=== PATIENT | female | born 1935 | race Two or more races ===

== ENCOUNTER 2018-11-25 16:58 | Inpatient (IN) | payer MEDICARE, MEDICAID ==
[2018-11-25 17:31] LABS: % BASOPHILS 0.6 % (0.0-2.0); % EOSINOPHILS 11.6 % (0.0-5.0); % LYMPHOCYTES 14.4 % (20.0-50.0); % MONOCYTES 11.2 % (2.0-10.0); % NEUTROPHILS 62.2 % (40.0-80.0); EOSINOPHILE ABSOLUTE 0.9 Th/cmm (0.1-0.4); HEMATOCRIT 34.2 % (41.0-60); HEMOGLOBIN 11.1 gm/dL (12-16); LYMPHOCYTE ABSOLUTE 1.1 Th/cmm (1.5-3.0); MEAN CELL VOLUME 80.3 fl (81-100); MEAN CORPUSCULAR HEMOGLOBIN 26.1 pg (27.0-31.0); MEAN CORPUSCULAR HGB CONC 32.4 pg (28.0-36.0); MEAN PLATELET VOLUME 7.3 fl; MONOCYTE ABSOLUTE 0.9 Th/cmm (0.3-1.0); NEUTROPHILE ABSOLUTE 4.9 Th/cmm (1.8-8.0); PLATELET COUNT 326 Th/cmm (150-400); RED BLOOD COUNT 4.26 Mil/cmm (3.80-5.20); RED CELL DISTRIBUTION WIDTH 16.2 % (11.5-20.0); WHITE BLOOD COUNT 7.8 Th/cmm (4.8-10.8)
[2018-11-25 17:44] LABS: ALB/GLOB RATIO 1.8 (1.0-1.8); ALBUMIN 4.1 gm/dL (3.7-5.3); ALKALINE PHOSPHATASE 97 U/L (34-104); ANION GAP 11.4 (7.0-16.0); BILIRUBIN,TOTAL 0.2 mg/dL (0.3-1.0); BUN - UREA NITROGEN 19 mg/dL (7-25); CALCIUM SERUM 9.5 mg/dL (8.6-10.3); CARBON DIOXIDE 26.6 mEq/L (21.0-31.0); CHLORIDE 103 mEq/L (98-107); CREATININE - SERUM 0.9 mg/dL (0.6-1.2); GLUCOSE 98 mg/dL (70-105); MAGNESIUM 2.2 mg/dL (1.9-2.7); PHOSPHOROUS 3.2 mg/dL (2.5-5.0); SGOT 18 U/L (13-39); SGPT/ALT 20 U/L (7-52); SODIUM SERUM 137 mEq/L (136-145); TOTAL PROTEIN,SERUM 6.4 gm/dL (6.0-8.3)
[2018-11-25 17:49] LABS: URINE SOURCE CLEAN C
[2018-11-25 17:52] LABS: URINE BILIRUBIN NEGATIVE (NEGATIVE); URINE BLOOD SMALL (NEGATIVE); URINE GLUCOSE (UA) NEGATIVE (NEGATIVE); URINE KETONE NEGATIVE (NEGATIVE); URINE LEUKOCYTE ESTERASE MODERATE (NEGATIVE); URINE MICROSCOPIC INDICATED? YES; URINE NITRATE POSITIVE (NEGATIVE); URINE PROTEIN 30 mg/dL (NEGATIVE); URINE UROBILINOGEN 0.2 E.U./dL (0.2 - 1.0)
[2018-11-25 18:10] LABS: URINE CLARITY CLOUDY (CLEAR); URINE COLOR YELLOW
[2018-11-25 18:11] LABS: URINE RBC 0-2 /hpf (0-5)
[2018-11-25 18:12] LABS: URINE BACTERIA FEW /hpf (NONE SEEN); URINE EPITHELIAL CELLS FEW /lpf (FEW); URINE WBC 25-50 /hpf (0-5)
[2018-11-25 18:13] LABS: BENZODIAZEPINES QUAL URINE POSITIVE (NEGATIVE)
[2018-11-25 18:14] LABS: AMPHETAMINE URINE NEGATIVE (NEGATIVE); BARBITURATES URINE NEGATIVE (NEGATIVE); CANNABINOID THC NEGATIVE (NEGATIVE); COCAINE METABOLITE QUAL URINE NEGATIVE (NEGATIVE); METHADONE URINE NEGATIVE (NEGATIVE); METHAMPHETAMINES QUAL URINE NEGATIVE (NEGATIVE); OPIATES (MORPHINE) QUAL. URINE NEGATIVE (NEGATIVE); PHENCYCLIDINE (PCP) URINE NEGATIVE (NEGATIVE); TRICYCLICS (TCA) QUAL. URINE NEGATIVE (NEGATIVE)
[2018-11-25] MEDS ORDERED: Lactated Ringer 1,000 ML IV ONE (18:35)
--- NOTE | 2018-11-25 18:40 | ED Physician Chart ---
ED Chief Complaint/HPI - Patient Information Date Seen:: 11/25/18 Time Seen:: 17:01 Chief Complaint:: weakness History of Present Illness:: PATIENT PRESENTS TO THE ER WITH HX OF GENERALIZED WEAKNESS, DECREASED ADL'S AND FREQUENT FALLS; NO TRAUMA, Allergies:: Allergies Allergy/AdvReac Type Severity Reaction Status Date / Time No Known Allergies Allergy Verified 11/25/18 17:01 Vitals:: Vital Signs - 8 hr 11/25/18 17:01 Temp 97.1 F HR 60 RR 16 BP 121/66 O2 Sat % 96 Historian:: Medical Records Review:: Nurse's Note Reviewed, Transfer documents Reviewed ED Review of Systems - Review of Systems General/Constitutional: No fever, No chills, No weight loss, Weakness, No diaphoresis, No edema, No loss of appetite Skin: No skin lesions, No rash, No bruising Head: No headache, No light-headedness Eyes: No loss of vision, No pain, No diplopia ENT: No earache, No nasal drainage, No sore throat, No tinnitus Neck: No neck pain, No swelling, No thyromegaly, No stiffness, No mass noted Cardio Vascular: No chest pain, No palpitations, No PND, No orthopnea, No edema Pulmonary: No SOB, Cough, No sputum, No wheezing, Other (dry cough) GI: No nausea, No vomiting, No diarrhea, No pain, No melena, No hematochezia, No constipation, No hematemesis G/U: No dysuria, No frequency, No hematuria Musculoskeletal: No bone or joint pain, No back pain, No muscle pain Endocrine: No polyuria, No polydipsia Psychiatric: No prior psych history, No depression, No anxiety, No suicidal ideation Hematopoietic: No bruising, No lymphadenopathy Allergic/Immuno: No urticaria, No angioedema Neurological: No syncope, No focal symptoms, No weakness, No paresthesia, No headache, No seizure, No dizziness, No confusion, No vertigo ED Past Medical History - Past Medical History Obtainable: No Past Medical History: HTN, Asthma/COPD, CVA/TIA, PUD/GERD, Thyroid disorder, Other (R hemiparesis; visual impairment; AAA; vascular dementia) Psychiatricy History: Depression, Other (anxiety disorder) Family Medical History - Family Member Mother History Unknown: Yes ED Physical Exam - Physical Examination General/Constitutional: Awake, Well-developed, well-nourished, Alert, No distress, GCS 15, Non-toxic appearing, Ambulatory Head: Atraumatic Eyes: Lids, conjuctiva normal, PERRL, EOMI Skin: Nl inspection ENMT: External ears, nose nl Neck: Nontender, No nuchal rigidity, No stridor Respiratory: Nl effort/Exclusion, Clear to Auscultation, No Wheeze/Rhonchi/Rales Cardio Vascular: RRR, No murmur, gallop, rubs, NL S1 S2 GI: No tenderness/rebounding/guarding : No CVA tenderness Extremities: No tenderness or effusion, Full ROM, normal strength in all extremities, No edema, Normal digits & nails Neuro/Psych: Alert/oriented Misc: Normal back, No paraspinal tenderness ED Labs/Radiology/EKG Results - Lab Results Results: Laboratory Tests 11/25/18 11/25/18 11/25/18 17:22 17:22 17:47 WBC 7.8 RBC 4.26 Hgb 11.1 L Hct 34.2 L MCV 80.3 L MCH 26.1 L MCHC Differential 32.4 RDW 16.2 Plt Count 326 MPV 7.3 Neutrophils % 62.2 Lymphocytes % 14.4 L Monocytes % 11.2 H Eosinophils % 11.6 H Basophils % 0.6 Sodium 137 Potassium 4.0 Chloride 103 Carbon Dioxide 26.6 Anion Gap 11.4 BUN 19 Creatinine 0.9 Est GFR ( Amer) TNP Est GFR (Non-Af Amer) TNP BUN/Creatinine Ratio 21.1 Glucose 98 Calcium 9.5 Phosphorus 3.2 Magnesium 2.2 Total Bilirubin 0.2 L AST 18 ALT 20 Alkaline Phosphatase 97 Total Protein 6.4 Albumin 4.1 Globulin 2.3 Albumin/Globulin Ratio 1.8 Urine Source CLEAN C Urine Color YELLOW Urine Clarity CLOUDY H Urine pH 6.0 Ur Specific [place] >= 1.030 Urine Protein 30 H Urine Glucose (UA) NEGATIVE Urine Ketones NEGATIVE Urine Blood SMALL H Urine Nitrate POSITIVE H Urine Bilirubin NEGATIVE Urine Urobilinogen 0.2 Ur Leukocyte Esterase MODERATE H Urine RBC 0-2 Urine WBC 25-50 H Ur Epithelial Cells FEW Urine Bacteria FEW Urine Opiates Screen Urine Methadone Screen Ur Barbiturates Screen Ur Tricyclics Screen Ur Phencyclidine Scrn Amphetamines Screen U Methamphetamines Scrn U Benzodiazepines Scrn U Cocaine Metab Screen U Cannabinoids Screen 11/25/18 17:47 WBC RBC Hgb Hct MCV MCH MCHC Differential RDW Plt Count MPV Neutrophils % Lymphocytes % Monocytes % Eosinophils % Basophils % Sodium Potassium Chloride Carbon Dioxide Anion Gap BUN Creatinine Est GFR ( Amer) Est GFR (Non-Af Amer) BUN/Creatinine Ratio Glucose Calcium Phosphorus Magnesium Total Bilirubin AST ALT Alkaline Phosphatase Total Protein Albumin Globulin Albumin/Globulin Ratio Urine Source Urine Color Urine Clarity Urine pH Ur Specific [place] Urine Protein Urine Glucose (UA) Urine Ketones Urine Blood Urine Nitrate Urine Bilirubin Urine Urobilinogen Ur Leukocyte Esterase Urine RBC Urine WBC Ur Epithelial Cells Urine Bacteria Urine Opiates Screen NEGATIVE Urine Methadone Screen NEGATIVE Ur Barbiturates Screen NEGATIVE Ur Tricyclics Screen NEGATIVE Ur Phencyclidine Scrn NEGATIVE Amphetamines Screen NEGATIVE U Methamphetamines Scrn NEGATIVE U Benzodiazepines Scrn POSITIVE H U Cocaine Metab Screen NEGATIVE U Cannabinoids Screen NEGATIVE ED Assessment - Assessment General Assessment: phone call to Dr. Olmstead at 6:37 p.m. who is giving admit orders at this time. EKG baseline obtained to check QT interval. EKG from 18:53:05 p.m. reveals normal sinus rhythm with flipped t wave in III and V1. CXR: NAD. ED Septic Shock - . Is Septic Shock (SBP<90, OR Lactate>4 mmol\L) present?: No - <6hrs of presentation: Vital Signs: Vital Signs - 8 hr 11/25/18 17:01 Temp 97.1 F HR 60 RR 16 BP 121/66 O2 Sat % 96 ED Reassessment (Disposition) - Reassessment Reassessment Condition:: Unchanged - Diagnosis Diagnosis:: Weakness Urinary tract infection Dehydration Anemia Benzodiazepine usage
[2018-11-25] MEDS ORDERED: Levofloxacin 500mg/100mL 500 MG/100 ML BAG IV ONE (21:00)
[2018-11-25] MEDS: Sodium Chloride 0.45% 1,000 ML IV SCH (22:29)
[2018-11-26 04:48] LABS: % BASOPHILS 0.4 % (0.0-2.0); % EOSINOPHILS 10.4 % (0.0-5.0); % LYMPHOCYTES 13.2 % (20.0-50.0); % MONOCYTES 8.4 % (2.0-10.0); % NEUTROPHILS 67.6 % (40.0-80.0); EOSINOPHILE ABSOLUTE 0.7 Th/cmm (0.1-0.4); HEMATOCRIT 32.7 % (41.0-60); HEMOGLOBIN 10.4 gm/dL (12-16); LYMPHOCYTE ABSOLUTE 0.9 Th/cmm (1.5-3.0); MEAN CELL VOLUME 80.6 fl (81-100); MEAN CORPUSCULAR HEMOGLOBIN 25.6 pg (27.0-31.0); MEAN CORPUSCULAR HGB CONC 31.8 pg (28.0-36.0); MEAN PLATELET VOLUME 7.4 fl; MONOCYTE ABSOLUTE 0.6 Th/cmm (0.3-1.0); NEUTROPHILE ABSOLUTE 4.8 Th/cmm (1.8-8.0); PLATELET COUNT 315 Th/cmm (150-400); RED BLOOD COUNT 4.05 Mil/cmm (3.80-5.20)
[2018-11-26 05:46] LABS: ANION GAP 10.8 (7.0-16.0); BUN - UREA NITROGEN 14 mg/dL (7-25); CHLORIDE 104 mEq/L (98-107); CREATININE - SERUM 0.8 mg/dL (0.6-1.2); GLUCOSE 109 mg/dL (70-105); POTASSIUM SERUM 3.8 mEq/L (3.5-5.1); SODIUM SERUM 137 mEq/L (136-145)
[2018-11-26 05:47] VITALS: BP 134/54
[2018-11-26 05:47] LABS: CALCIUM SERUM 9.2 mg/dL (8.6-10.3)
[2018-11-26] MEDS ORDERED: Magnesium Hydroxide (MOM) 30 mL UDC PO PRN (09:15)
[2018-11-26] MEDS ORDERED: MINERAL OIL ENEMA 135 ML BOTTLE RC PRN (09:15)
[2018-11-26] MEDS ORDERED: Probiotic Screen MC PRN (09:17)
--- NOTE | 2018-11-26 09:22 | Diagnostic Imaging Report ---
Portable chest x-ray HISTORY: Cough The overall heart size is difficult to assess with portable technique in a poor inspiration, but appears to be somewhat enlarged. 8 mm calcified nodule noted in the right lower lobe consistent with old granulomatous disease. No acute focal pulmonary processes. IMPRESSION: 1. No acute focal pulmonary processes 2. Suggestion of cardiomegaly
--- NOTE | 2018-11-26 10:03 | History & Physical ---
ADMIT DATE: 11/26/2018 CHIEF COMPLAINT: Weakness. HISTORY OF PRESENT ILLNESS: This is an 83-year-old female who was admitted from the Emergency Room of [facility] secondary to weakness. From the Emergency Room, the patient did workup and found that the patient has ongoing urinary tract infection, hence the patient was admitted to Med/Surg unit. REVIEW OF SYSTEMS: GENERAL: This is an 83-year-old female. Denies fever. Positive weakness. HEENT: Denies headache. Denies dizziness. EYES: Denies eye pain. Denies blurring of vision. NECK: Denies neck pain. Denies nuchal rigidity. CHEST: Denies chest pain. Denies palpitation. PULMONARY: Denies shortness of breath. Positive coughing. GASTROINTESTINAL: Denies abdominal pain. Denies constipation. Denies diarrhea. MUSCULOSKELETAL: Denies joint pain. Denies muscle pain. SOCIAL HISTORY: The patient lives with family at home. Denies nicotine. Denies alcohol. Denies illicit drug use. PAST SURGICAL HISTORY: Unremarkable. FAMILY HISTORY: Unremarkable. PAST MEDICAL HISTORY: Includes asthma, hypertension, gout, arthritis, hyperlipidemia, coronary artery disease, iron-deficiency anemia, neuropathy, hypothyroidism. PSYCHIATRIC HISTORY: Includes depression, questionable dementia. PAST SURGICAL HISTORY: Unremarkable. PHYSICAL EXAMINATION: VITAL SIGNS: Temperature 96.8, heart rate of 86, blood pressure 132/60, respirations of 18, and 96% on room air. GENERAL: This is an 83-year-old female that appears as stated in no acute distress. HEENT: Head is atraumatic, normocephalic. Eyes: Bilateral conjunctivae are clear. Bilateral pupils are equally round and reactive. NECK: Supple. No JVD. CARDIOVASCULAR: S1 and S2, without murmur. PULMONARY: Clear to auscultation. GASTROINTESTINAL: Soft and nontender without guarding. Positive bowel sounds. MUSCULOSKELETAL: No clubbing. No cyanosis noted. ASSESSMENT: 1. Urinary tract infection. 2. Asthma. 3. Hypertension. 4. Gouty arthritis. 5. Coronary artery disease. 6. Hyperlipidemia. 7. Iron-deficiency anemia. 8. Gastroesophageal reflux disease. 9. Neuropathy. 10. Depression. PLAN: We will admit the patient to Med/Surg Unit. We will continue current antibiotics. We will wait for the urine culture. We will do medication reconciliation accordingly. Treatment plans were discussed with the patient's nurse. Treatment plans were discussed with Dr. Olmstead. JOB# [id number]
[2018-11-26] MEDS: Ferrous Sulfate 300 MG/5 ML UDC PO SCH ×3 (10:42→21:06)
[2018-11-26] MEDS: Levothyroxine 0.05 Mg Tab PO SCH (10:42)
[2018-11-26] MEDS: Albuterol/Ipratropium Neb 3 ML AERS HHN SCH ×2 (12:05→19:55)
[2018-11-26] MEDS: Guaifenesin DM 10 ML UDC PO PRN (17:34)
--- NOTE | 2018-11-26 19:01 | Consultation ---
Consult Note - Consult Note Service Date: 11/26/18 Referring Physician: Yong Olmstead Consult Note: PHYSICIAN Consultation Note: Date of Admission: 11/25/18 Purpose of Consultation: Chief Complaint: Patient DARREN DAWKINS was admitted to location Medical/Surgical Unit I with DEHYDRATION,UTI,WEAKNESS. History of Present Illness: 83 year old female with a past medical history of asthma, hypertension, gout, arthritis, hyperlipidemia, coronary artery disease, iron deficiency anemia, neuropathy, hypothyroidism brought to the ER for generalized weakness. On further evaluation, she was found to have UTI. Urine culture revealed 1-100, 000 gram-negative rods. ID consult was called for antibiotic management. Patient is poor historian. Unable to provide any meaningful history. Past Medical History: Asthma, hypertension, gout, arthritis, hyperlipidemia, coronary artery disease, iron deficiency anemia, neuropathy, hypothyroidism. Allergies Allergy/AdvReac Type Severity Reaction Status Date / Time No Known Allergies Allergy Verified 11/25/18 17:01 Vital Signs Temp 98.7 F 11/26/18 15:50 Pulse 66 11/26/18 17:26 Resp 18 11/26/18 15:50 BP 116/59 11/26/18 17:26 Pulse Ox 97 11/26/18 15:50 Intake & Output 11/26/18 11/26/18 11/27/18 06:59 18:59 06:59 Weight (lbs) 81.647 kg Other: # Voids 4 # Bowel Movements 0 Weight Source Bedscale Laboratory Results - last 24 hr 11/26/18 11/26/18 04:10 05:00 WBC 7.0 RBC 4.05 Hgb 10.4 L Hct 32.7 L MCV 80.6 L MCH 25.6 L MCHC Differential 31.8 RDW 16.0 Plt Count 315 MPV 7.4 Neutrophils % 67.6 Lymphocytes % 13.2 L Monocytes % 8.4 Eosinophils % 10.4 H Basophils % 0.4 Sodium 137 Potassium 3.8 Chloride 104 Carbon Dioxide 26.0 Anion Gap 10.8 BUN 14 Creatinine 0.8 Est GFR ( Amer) TNP Est GFR (Non-Af Amer) TNP BUN/Creatinine Ratio 17.5 Glucose 109 H Calcium 9.2 Home Medication Medication Instructions Recorded Type Acetaminophen [Tylenol] 650 mg PO Q4H PRN 11/25/18 History Albuterol/Ipratropium Neb [Duoneb 3 ml HHN Q6HR 11/25/18 History Neb] Allopurinol 200 mg PO DAILY 11/25/18 History Ascorbic Acid [Vitamin C] 500 mg PO TID 11/25/18 History Atorvastatin Calcium [Lipitor] 40 mg PO HS 11/25/18 History Clopidogrel [Plavix] 75 mg PO DAILY 11/25/18 History Cyanocobalamin [Vitamin B12] 1,000 mcg PO Q120H 11/25/18 History Docusate Sodium 100 mg PO BID 11/25/18 History Donepezil Hcl [Aricept] 10 mg PO HS 11/25/18 History Escitalopram Oxalate [Lexapro] 5 mg PO DAILY 11/25/18 History Famotidine 20 mg PO DAILY 11/25/18 History Ferrous Sulfate [Ferosul] 7.5 ml PO TID 11/25/18 History Fluticasone Propionate Nasal 2 spr NS DAILY 11/25/18 History [Flonase] Fluticasone/Vilanterol [Breo 1 pow IH DAILY 11/25/18 History Ellipta] Gabapentin 100 mg PO TID 11/25/18 History Guaifenesin/Dextromethorphan 1,185 ml PO Q6H PRN 11/25/18 History [Tussin Dm Cough Syrup] Ibuprofen 400 mg PO Q6H PRN 11/25/18 History Ibuprofen 600 mg PO Q12H 11/25/18 History Levothyroxine Sodium 50 mcg PO DAILY 11/25/18 History Magnesium Hydroxide [Milk of 30 ml PO DAILY PRN 11/25/18 History Magnesia] Melatonin 10 mg PO HS 11/25/18 History Metoprolol Tartrate 50 mg PO BID 11/25/18 History Mineral Oil Enema [Fleet Mineral 135 ml RC DAILY PRN 11/25/18 History Oil] Nitroglycerin 0.4 mg SL Q5MIN PRN 11/25/18 History amLODIPine Besylate [Norvasc] 5 mg PO DAILY 11/25/18 History Current Medications Generic Name Dose Route Start Last Admin Trade Name Freq PRN Reason Stop Dose Admin Acetaminophen 650 mg 11/26/18 09:15 Tylenol PO Q4H PRN MILD PAIN Albuterol/Ipratropium 3 ml 11/26/18 12:00 11/26/18 12:05 Duoneb Neb HHN 01/25/19 11:59 3 ml Q6HRT SONAM Administration Allopurinol 200 mg 11/26/18 09:30 11/26/18 10:42 Zyloprim PO 01/25/19 09:29 200 mg DAILY SONAM Administration Amlodipine Besylate 5 mg 11/26/18 09:30 11/26/18 10:43 Norvasc PO 01/25/19 09:29 5 mg DAILY SONAM Administration Ascorbic Acid 500 mg 11/26/18 09:30 11/26/18 15:17 Vitamin C PO 01/25/19 09:29 500 mg TID SONAM Administration Atorvastatin Calcium 40 mg 11/26/18 21:00 Lipitor PO 01/25/19 20:59 HS [facility] Budesonide 0.5 mg 11/26/18 12:00 Pulmicort [facility] 01/25/19 11:59 BIDRT [facility] Clopidogrel Bisulfate 75 mg 11/26/18 09:30 11/26/18 10:42 Plavix PO 01/25/19 09:29 75 mg DAILY [facility] Administration Cyanocobalamin 1,000 mcg 11/26/18 09:15 Vitamin B12 PO 01/25/19 09:14 Q120H [facility] Docusate Sodium 100 mg 11/26/18 09:30 11/26/18 17:27 Colace PO 01/25/19 09:29 100 mg BID [facility] Administration Donepezil HCl 10 mg 11/26/18 21:00 Aricept PO 01/25/19 20:59 HS [facility] Escitalopram Oxalate 5 mg 11/26/18 09:30 Lexapro PO 01/25/19 09:29 DAILY [facility] Protocol Famotidine 20 mg 11/26/18 09:30 11/26/18 10:43 Pepcid PO 01/25/19 09:29 20 mg DAILY [facility] Administration Ferrous Sulfate 300 mg 11/26/18 09:30 11/26/18 15:17 Iron PO 01/25/19 09:29 300 mg TID SONAM Administration Gabapentin 100 mg 11/26/18 09:30 11/26/18 15:17 Neurontin PO 01/25/19 09:29 100 mg TID [facility] Administration Guaifenesin/Dextromethorphan 10 ml 11/26/18 09:15 11/26/18 17:34 Robitussin Dm PO 01/25/19 09:14 10 ml Q6H PRN Administration Cough Sodium Chloride 1,000 mls @ 75 mls/hr 11/25/18 19:52 11/25/18 22:29 Nacl 0.45% IV 01/24/19 19:51 75 mls/hr .[id number] SONAM Administration Levofloxacin 250 mg in 50 mls @ 50 mls/hr 11/26/18 21:00 Levaquin Pb IV 01/25/19 20:59 HS SONAM Ibuprofen 400 mg 11/26/18 09:15 Motrin PO 01/25/19 09:14 Q6H PRN MOD/SEVERE PAIN Lactobacillus Rhamnosus 1 each 11/27/18 09:00 Culturelle 15b PO 01/26/19 08:59 DAILY SONAM Levothyroxine Sodium 0.05 mg 11/26/18 09:30 11/26/18 10:42 Synthroid PO 01/25/19 09:29 0.05 mg DAILY SONAM Administration Magnesium Hydroxide 30 ml 11/26/18 09:15 11/26/18 17:27 Milk Of Magnesia PO 01/25/19 09:14 30 ml DAILY PRN Administration IF DSS INEFFECTIVE Metoprolol Tartrate 50 mg 11/26/18 09:30 11/26/18 17:26 Lopressor PO 01/25/19 09:29 50 mg BID SONAM Administration Mineral Oil 135 ml 11/26/18 09:15 Fleet Mineral Oil RC 01/25/19 09:14 DAILY PRN IF DULCOLAX INEFFECTIVE Miscellaneous 1 ea 11/26/18 09:17 Probiotic Screen MC 01/25/19 09:16 PRN PRN PROTOCOL Nitroglycerin 0.4 mg 11/26/18 09:15 Nitrostat SL 01/25/19 09:14 Q5MIN PRN CHEST PAIN X3 Review of Systems: A 12 point ROS was reviewed with the pertinent positive and negatives noted in the HPI. Social History Lives at nursing facility. Smoking Status Former smoker Family Medical History Unknown. Physical Exam: General: Comfortable, not in acute distress. HEENT: Head: Normocephalic, atraumatic. Oral cavity: Moist, pink tongue. Eyes : PERRLA is present. Pupils PERRLA. No icterus. EOMI. Neck: Supple, no JVD, no use of accessory neck muscles. No thyromegaly. Cardio: S1 and S2 within normal limits, regular rhythm. There is no gallop, no gallops, no murmur. Respiratory: CTAP. Abdominal: Soft, nontender, nondistended, bowel sounds present Genital/Urinary: Deferred. Extremities: No cyanosis, no clubbing, no edema. Neurological: Alert, awake, Assessment: 1. UTI. 2. MEtabolic encephalopathy Plan: Continue levaquin. Depending on the culture and final antibiotic therapy. Thank you, Dr. Olmstead, for involving me in taking care of this patient. Signed, Kurt Pacheco M.D. [id number]
[2018-11-26] MEDS: Sodium Chloride 0.45% 1,000 ML IV SCH (19:43)
[2018-11-26] MEDS: Budesonide 0.5 Mg/2 mL Ud HHN SCH (19:55)
[2018-11-26] MEDS ORDERED: Non-Formulary Item 1 EA (Melatonin [Melatonin] 10 MG) PO SCH (21:00)
[2018-11-26] MEDS: Levofloxacin 250 mg/50 mL Premix Bag IV SCH (21:08)
[2018-11-27] MEDS: Guaifenesin DM 10 ML UDC PO PRN (00:02)
[2018-11-27] MEDS: Albuterol/Ipratropium Neb 3 ML AERS HHN SCH ×4 (00:25→19:28)
[2018-11-27 05:24] LABS: % BASOPHILS 0.5 % (0.0-2.0); % EOSINOPHILS 10.1 % (0.0-5.0); % LYMPHOCYTES 14.7 % (20.0-50.0); % NEUTROPHILS 64.7 % (40.0-80.0); EOSINOPHILE ABSOLUTE 0.7 Th/cmm (0.1-0.4); HEMATOCRIT 32.5 % (41.0-60); HEMOGLOBIN 10.6 gm/dL (12-16); LYMPHOCYTE ABSOLUTE 1.1 Th/cmm (1.5-3.0); MEAN CELL VOLUME 80.4 fl (81-100); MEAN CORPUSCULAR HEMOGLOBIN 26.3 pg (27.0-31.0); MEAN CORPUSCULAR HGB CONC 32.7 pg (28.0-36.0); MEAN PLATELET VOLUME 7.3 fl; MONOCYTE ABSOLUTE 0.7 Th/cmm (0.3-1.0); NEUTROPHILE ABSOLUTE 4.7 Th/cmm (1.8-8.0); PLATELET COUNT 312 Th/cmm (150-400); RED BLOOD COUNT 4.04 Mil/cmm (3.80-5.20); RED CELL DISTRIBUTION WIDTH 16.3 % (11.5-20.0); WHITE BLOOD COUNT 7.2 Th/cmm (4.8-10.8)
[2018-11-27 05:38] LABS: ALB/GLOB RATIO 1.7 (1.0-1.8); ALKALINE PHOSPHATASE 88 U/L (34-104); ANION GAP 10.4 (7.0-16.0); BILIRUBIN,TOTAL 0.2 mg/dL (0.3-1.0); BUN - UREA NITROGEN 8 mg/dL (7-25); CALCIUM SERUM 9.3 mg/dL (8.6-10.3); CARBON DIOXIDE 25.5 mEq/L (21.0-31.0); CHLORIDE 103 mEq/L (98-107); CREATININE - SERUM 0.9 mg/dL (0.6-1.2); GLUCOSE 114 mg/dL (70-105); POTASSIUM SERUM 3.9 mEq/L (3.5-5.1); SGOT 16 U/L (13-39); SGPT/ALT 17 U/L (7-52); SODIUM SERUM 135 mEq/L (136-145); TOTAL PROTEIN,SERUM 6.3 gm/dL (6.0-8.3)
[2018-11-27] MEDS: Budesonide 0.5 Mg/2 mL Ud HHN SCH ×2 (06:55→19:28)
[2018-11-27] MEDS: Ferrous Sulfate 300 MG/5 ML UDC PO SCH ×3 (08:32→20:29)
[2018-11-27] MEDS: Levothyroxine 0.05 Mg Tab PO SCH (08:32)
[2018-11-27] MEDS: Lactobacillus Rhamnosus GG 15 Billion CFU CAP.SPRINK PO SCH (08:33)
[2018-11-27] MEDS: Escitalopram Oxalate 5 mg Tab PO SCH (08:34)
--- NOTE | 2018-11-27 09:32 | Internal Medicine Prog Note ---
Internal Medicine Subjective - Subjective Patient seen and examined:: chart reviewed Patient is:: awake, talking, other (gen' weakness) Per staff patient has:: no adverse event Internal Medicine Objective - Results Result Diagrams: 11/27/18 05:10 11/27/18 05:10 Recent Labs: Laboratory Last Values WBC 7.2 Th/cmm (4.8-10.8) 11/27/18 05:10 RBC 4.04 Mil/cmm (3.80-5.20) 11/27/18 05:10 Hgb 10.6 gm/dL (12-16) L 11/27/18 05:10 Hct 32.5 % (41.0-60) L 11/27/18 05:10 MCV 80.4 fl (81-100) L 11/27/18 05:10 MCH 26.3 pg (27.0-31.0) L 11/27/18 05:10 MCHC Differential 32.7 pg (28.0-36.0) 11/27/18 05:10 RDW 16.3 % (11.5-20.0) 11/27/18 05:10 Plt Count 312 Th/cmm (150-400) 11/27/18 05:10 MPV 7.3 fl 11/27/18 05:10 Neutrophils % 64.7 % (40.0-80.0) 11/27/18 05:10 Lymphocytes % 14.7 % (20.0-50.0) L 11/27/18 05:10 Monocytes % 10.0 % (2.0-10.0) 11/27/18 05:10 Eosinophils % 10.1 % (0.0-5.0) H 11/27/18 05:10 Basophils % 0.5 % (0.0-2.0) 11/27/18 05:10 Sodium 135 mEq/L (136-145) L 11/27/18 05:10 Potassium 3.9 mEq/L (3.5-5.1) 11/27/18 05:10 Chloride 103 mEq/L (98-107) 11/27/18 05:10 Carbon Dioxide 25.5 mEq/L (21.0-31.0) 11/27/18 05:10 Anion Gap 10.4 (7.0-16.0) 11/27/18 05:10 BUN 8 mg/dL (7-25) 11/27/18 05:10 Creatinine 0.9 mg/dL (0.6-1.2) 11/27/18 05:10 Est GFR ( Amer) TNP 11/27/18 05:10 Est GFR (Non-Af Amer) TNP 11/27/18 05:10 BUN/Creatinine Ratio 8.9 11/27/18 05:10 Glucose 114 mg/dL (70-105) H 11/27/18 05:10 Calcium 9.3 mg/dL (8.6-10.3) 11/27/18 05:10 Phosphorus 3.2 mg/dL (2.5-5.0) 11/25/18 17:22 Magnesium 2.2 mg/dL (1.9-2.7) 11/25/18 17:22 Total Bilirubin 0.2 mg/dL (0.3-1.0) L 11/27/18 05:10 AST 16 U/L (13-39) 11/27/18 05:10 ALT 17 U/L (7-52) 11/27/18 05:10 Alkaline Phosphatase 88 U/L (34-104) 11/27/18 05:10 Total Protein 6.3 gm/dL (6.0-8.3) 11/27/18 05:10 Albumin 4.0 gm/dL (3.7-5.3) 11/27/18 05:10 Globulin 2.3 gm/dL 11/27/18 05:10 Albumin/Globulin Ratio 1.7 (1.0-1.8) 11/27/18 05:10 TSH 3.32 uIU/ml (0.34-5.60) 11/25/18 17:22 Urine Source CLEAN C 11/25/18 17:47 Urine Color YELLOW 11/25/18 17:47 Urine Clarity CLOUDY (CLEAR) H 11/25/18 17:47 Urine pH 6.0 (4.6 - 8.0) 11/25/18 17:47 Ur Specific [place] >= 1.030 (1.005-1.030) 11/25/18 17:47 Urine Protein 30 mg/dL (NEGATIVE) H 11/25/18 17:47 Urine Glucose (UA) NEGATIVE mg/dL (NEGATIVE) 11/25/18 17:47 Urine Ketones NEGATIVE mg/dL (NEGATIVE) 11/25/18 17:47 Urine Blood SMALL (NEGATIVE) H 11/25/18 17:47 Urine Nitrate POSITIVE (NEGATIVE) H 11/25/18 17:47 Urine Bilirubin NEGATIVE (NEGATIVE) 11/25/18 17:47 Urine Urobilinogen 0.2 E.U./dL (0.2 - 1.0) 11/25/18 17:47 Ur Leukocyte Esterase MODERATE (NEGATIVE) H 11/25/18 17:47 Urine RBC 0-2 /hpf (0-5) 11/25/18 17:47 Urine WBC 25-50 /hpf (0-5) H 11/25/18 17:47 Ur Epithelial Cells FEW /lpf (FEW) 11/25/18 17:47 Urine Bacteria FEW /hpf (NONE SEEN) 11/25/18 17:47 Stool Occult Blood NEGATIVE (NEGATIVE) 11/26/18 20:15 Urine Opiates Screen NEGATIVE (NEGATIVE) 11/25/18 17:47 Urine Methadone Screen NEGATIVE (NEGATIVE) 11/25/18 17:47 Ur Barbiturates Screen NEGATIVE (NEGATIVE) 11/25/18 17:47 Ur Tricyclics Screen NEGATIVE (NEGATIVE) 11/25/18 17:47 Ur Phencyclidine Scrn NEGATIVE (NEGATIVE) 11/25/18 17:47 Amphetamines Screen NEGATIVE (NEGATIVE) 11/25/18 17:47 U Methamphetamines Scrn NEGATIVE (NEGATIVE) 11/25/18 17:47 U Benzodiazepines Scrn POSITIVE (NEGATIVE) H 11/25/18 17:47 U Cocaine Metab Screen NEGATIVE (NEGATIVE) 11/25/18 17:47 U Cannabinoids Screen NEGATIVE (NEGATIVE) 11/25/18 17:47 - Physical Exam Vitals and I&O: Vital Signs Temp 98.2 F 11/27/18 08:13 Pulse 77 11/27/18 08:33 Resp 18 11/27/18 08:13 BP 134/49 11/27/18 08:33 Pulse Ox 98 11/27/18 08:13 Intake & Output 11/26/18 11/27/18 11/27/18 18:59 06:59 18:59 Intake Total 1000 1560 Balance 1000 1560 Weight (lbs) 81.647 kg Intake: Intake, IV Amount 1000 Sodium Chloride 0.45% 1, 1000 000 ml @ 75 mls/hr IV . [id number] [facility] Rx#:[id number] Oral 660 TPN/PPN 900 Other: # Voids 3 # Bowel Movements 0 Weight Source Bedscale Active Medications: Current Medications Acetaminophen (Tylenol) 650 mg PO Q4H PRN PRN Reason: MILD PAIN Albuterol/Ipratropium (Duoneb Neb) 3 ml HHN Q6HRT [facility] Stop: 01/25/19 11:59 Last Admin: 11/27/18 06:55 Dose: 3 ml Allopurinol (Zyloprim) 200 mg PO DAILY [facility] Stop: 01/25/19 09:29 Last Admin: 11/27/18 08:33 Dose: 200 mg Amlodipine Besylate (Norvasc) 5 mg PO DAILY [facility] Stop: 01/25/19 09:29 Last Admin: 11/27/18 08:33 Dose: 5 mg Ascorbic Acid (Vitamin C) 500 mg PO TID [facility] Stop: 01/25/19 09:29 Last Admin: 11/27/18 08:33 Dose: 500 mg Atorvastatin Calcium (Lipitor) 40 mg PO HS [facility] Stop: 01/25/19 20:59 Last Admin: 11/26/18 21:06 Dose: 40 mg Budesonide (Pulmicort) 0.5 mg HHN BIDRT [facility] Stop: 01/25/19 11:59 Last Admin: 11/27/18 06:55 Dose: 0.5 mg Clopidogrel Bisulfate (Plavix) 75 mg PO DAILY [facility] Stop: 01/25/19 09:29 Last Admin: 11/27/18 08:33 Dose: 75 mg Cyanocobalamin (Vitamin B12) 1,000 mcg PO Q120H [facility] Stop: 01/25/19 09:14 Docusate Sodium (Colace) 100 mg PO BID [facility] Stop: 01/25/19 09:29 Last Admin: 11/27/18 08:33 Dose: 100 mg Donepezil HCl (Aricept) 10 mg PO HS [facility] Stop: 01/25/19 20:59 Last Admin: 11/26/18 21:06 Dose: 10 mg Escitalopram Oxalate (Lexapro) 5 mg PO DAILY [facility]; Protocol Stop: 01/25/19 09:29 Last Admin: 11/27/18 08:34 Dose: 5 mg Famotidine (Pepcid) 20 mg PO DAILY [facility] Stop: 01/25/19 09:29 Last Admin: 11/27/18 08:33 Dose: 20 mg Ferrous Sulfate (Iron) 300 mg PO TID [facility] Stop: 01/25/19 09:29 Last Admin: 11/27/18 08:32 Dose: 300 mg Gabapentin (Neurontin) 100 mg PO TID [facility] Stop: 01/25/19 09:29 Last Admin: 11/27/18 08:32 Dose: 100 mg Guaifenesin/Dextromethorphan (Robitussin Dm) 10 ml PO Q6H PRN PRN Reason: Cough Stop: 01/25/19 09:14 Last Admin: 11/27/18 00:02 Dose: 10 ml Sodium Chloride (Nacl 0.45%) 1,000 mls @ 75 mls/hr IV .[id number] [facility] Stop: 01/24/19 19:51 Last Admin: 11/26/18 19:43 Dose: 75 mls/hr Levofloxacin (Levaquin Pb) 250 mg in 50 mls @ 50 mls/hr IV HS [facility] Stop: 01/25/19 20:59 Last Admin: 11/26/18 21:08 Dose: 50 mls/hr Ibuprofen (Motrin) 400 mg PO Q6H PRN PRN Reason: MOD/SEVERE PAIN Stop: 01/25/19 09:14 Lactobacillus Rhamnosus (Culturelle 15b) 1 each PO DAILY [facility] Stop: 01/26/19 08:59 Last Admin: 11/27/18 08:33 Dose: 1 each Levothyroxine Sodium (Synthroid) 0.05 mg PO DAILY [facility] Stop: 01/25/19 09:29 Last Admin: 11/27/18 08:32 Dose: 0.05 mg Lorazepam (Ativan) 1 mg IVP Q6H PRN; Protocol PRN Reason: Agitation Stop: 01/25/19 20:02 Magnesium Hydroxide (Milk Of Magnesia) 30 ml PO DAILY PRN PRN Reason: IF DSS INEFFECTIVE Stop: 01/25/19 09:14 Last Admin: 11/26/18 17:27 Dose: 30 ml Metoprolol Tartrate (Lopressor) 50 mg PO BID [facility] Stop: 01/25/19 09:29 Last Admin: 11/27/18 08:33 Dose: 50 mg Mineral Oil (Fleet Mineral Oil) 135 ml RC DAILY PRN PRN Reason: IF DULCOLAX INEFFECTIVE Stop: 01/25/19 09:14 Miscellaneous (Probiotic Screen) 1 ea MC PRN PRN PRN Reason: PROTOCOL Stop: 01/25/19 09:16 Mupirocin (Bactroban Oint) 1 appl NS BID [facility] Stop: 12/01/18 17:01 Last Admin: 11/27/18 08:32 Dose: 1 appl Nitroglycerin (Nitrostat) 0.4 mg SL Q5MIN PRN PRN Reason: CHEST PAIN X3 Stop: 01/25/19 09:14 General: weak, alert Neck: Supple Lungs: CTAB Cardiovascular: RRR, Normal S1, Normal S2 Abdomen: soft, non-tender Extremities: clear Neurological: no change Internal Medicine Assmt/Plan - Assessment Assessment: uti weakness generalized h/o htn gouty arthritis cad hyperlipidemia anemia gerd neuropathy depression - Plan Plan: antibiotics monitor vitals deit labs urine cultures Nutritional Asmnt/Malnutr-PDOC - Dietary Evaluation Malnutrition Findings (Please click <Entered> for more info): Nutritional Asmnt/Malnutrition Start: 11/26/18 12: 46 Text: Status: Active Freq: Protocol: Document 11/26/18 12:54 RHAQUE (Rec: 11/26/18 13:01 RHAQOMAR [email or web address]) Nutritional Asmnt/Malnutrition Patient General Information Nutritional Screening High Risk Diagnosis Dehydration, UTI, Weakness Pertinent Medical Hx/Surgical Hx Asthma, HTN, Gout, Arthritis, MDD, Hyperlipidemia, CAD, iron def anemia, Neuropathy, Hypothyroidism Subjective Information Pt was fast asleep with lunch in front of her during visit. Spoke to TEJAL Mock, she claimed that Pt is mostly span speaking, but has been eating some of her meals. No record of B.M as yet, but has only been here for ~1 day. TEJAL Mock later informed me that the Pt has no teeth, so her diet may need to be changed after possible Swallow eval. Supplementation with Ensure TID was recommended. Current Diet Order/ Nutrition Support [facility] Soft texture w Regular Liquid Consistency Patient / S.O Can't verbalize diet edu Pertinent Medications Allopurinol, Vit C, Plavix, Colace, Pepcid, Iron, Gabapentin, Synthroid Pertinent Labs Gluc 109 H Nutritional Hx/Data Height 1.6 m Height (Calculated Centimeters) 160.0 Current Weight (lbs) 81.647 kg Weight (Calculated Kilograms) 81.6 Weight (Calculated Grams) 41371.6 [place] Body Weight 115 % [place] Body Weight 139 Body Mass Index (BMI) 31.8 Weight Status Overweight GI Symptoms GI Symptoms None Last BM No record Difficult in: None Food Allergies No Cultural/Ethnic/Religion Belief None noted. Skin Integrity/Comment: Felipe score 16 Current %PO Negligible < 25% Estimated Nutritional Goals BEE in Kcals: Adj wt of IBW Calories/Kcals/Kg 25-30 Kcals Calculated 6912-6034 Protein: Adj wt of IBW Protein g/k.8-1 Protein Calculated 48-60 Fluid: ml 9155-6967 Nutritional Problem 1. Problem Problem Inadequate oral food intake d/ t Etiology incorrect diet order aeb Signs/Symptoms: negligible PO intake Malnutrition Alert Is there a minimum of two criteria No selected? Query Text:Check all the applicable criteria. A minimum of two criteria are recommended for diagnosis of either severe or non-severe malnutrition. Malnutrition Related to Morbid Obesity Malnutrition related to morbid obesity No Intervention/Recommendation Recommendations by RD Protein supplementation Add supplement feedings Comments Change diet to softer consistency to account for lack of dentition. Add supplemental feedings with Ensure TID to facilitate PO intake. Expected Outcomes/Goals Expected Outcomes/Goals Maintain 100% PO intake Labs return WNL Monitor for constipation, no record of B.M.s since admission F/U in 3-5 days as
[2018-11-27] MEDS: Sodium Chloride 0.45% 1,000 ML IV SCH (14:52)
[2018-11-27] MEDS: Levofloxacin 250 mg/50 mL Premix Bag IV SCH (20:29)
[2018-11-28] MEDS: Albuterol/Ipratropium Neb 3 ML AERS HHN SCH ×4 (01:18→19:05)
[2018-11-28] MEDS: Sodium Chloride 0.45% 1,000 ML IV SCH (06:01)
[2018-11-28 06:31] LABS: % BASOPHILS 0.1 % (0.0-2.0); % LYMPHOCYTES 11.4 % (20.0-50.0); % MONOCYTES 10.1 % (2.0-10.0); % NEUTROPHILS 65.4 % (40.0-80.0); EOSINOPHILE ABSOLUTE 1.1 Th/cmm (0.1-0.4); HEMATOCRIT 34.3 % (41.0-60); HEMOGLOBIN 11.1 gm/dL (12-16); MEAN CELL VOLUME 80.4 fl (81-100); MEAN CORPUSCULAR HGB CONC 32.4 pg (28.0-36.0); MEAN PLATELET VOLUME 7.5 fl; MONOCYTE ABSOLUTE 0.9 Th/cmm (0.3-1.0); NEUTROPHILE ABSOLUTE 5.7 Th/cmm (1.8-8.0); PLATELET COUNT 298 Th/cmm (150-400); RED BLOOD COUNT 4.27 Mil/cmm (3.80-5.20); RED CELL DISTRIBUTION WIDTH 16.3 % (11.5-20.0); WHITE BLOOD COUNT 8.7 Th/cmm (4.8-10.8)
[2018-11-28 06:44] LABS: ALB/GLOB RATIO 1.5 (1.0-1.8); ALBUMIN 3.7 gm/dL (3.7-5.3); ALKALINE PHOSPHATASE 87 U/L (34-104); ANION GAP 11.4 (7.0-16.0); BILIRUBIN,TOTAL 0.2 mg/dL (0.3-1.0); BUN - UREA NITROGEN 10 mg/dL (7-25); CALCIUM SERUM 9.3 mg/dL (8.6-10.3); CARBON DIOXIDE 26.6 mEq/L (21.0-31.0); CHLORIDE 103 mEq/L (98-107); CREATININE - SERUM 0.9 mg/dL (0.6-1.2); GLUCOSE 121 mg/dL (70-105); SGOT 16 U/L (13-39); SGPT/ALT 16 U/L (7-52); SODIUM SERUM 137 mEq/L (136-145); TOTAL PROTEIN,SERUM 6.2 gm/dL (6.0-8.3)
[2018-11-28] MEDS: Budesonide 0.5 Mg/2 mL Ud HHN SCH ×2 (06:44→19:05)
[2018-11-28] MEDS ORDERED: Betamethasone/Clotrimazole Cream 15 gm Tube TP SCH (09:00)
[2018-11-28] MEDS: Ferrous Sulfate 300 MG/5 ML UDC PO SCH ×2 (09:28→17:34)
[2018-11-28] MEDS: Levothyroxine 0.05 Mg Tab PO SCH (09:28)
[2018-11-28] MEDS: Escitalopram Oxalate 5 mg Tab PO SCH (09:28)
[2018-11-28] MEDS: Lactobacillus Rhamnosus GG 15 Billion CFU CAP.SPRINK PO SCH (09:30)
--- NOTE | 2018-11-28 10:47 | Internal Medicine Prog Note ---
Internal Medicine Subjective - Subjective Service Date: 11/28/18 Patient seen and examined:: chart reviewed Patient is:: awake, verbal, talking, other (general weakness) Patient Complaints of:: other (neuropathy) Per staff patient has:: no adverse event, no episodes of fall (uti) Internal Medicine Objective - Results Result Diagrams: 11/28/18 05:45 11/28/18 05:45 Recent Labs: Laboratory Last Values WBC 8.7 Th/cmm (4.8-10.8) 11/28/18 05:45 RBC 4.27 Mil/cmm (3.80-5.20) 11/28/18 05:45 Hgb 11.1 gm/dL (12-16) L 11/28/18 05:45 Hct 34.3 % (41.0-60) L 11/28/18 05:45 MCV 80.4 fl (81-100) L 11/28/18 05:45 MCH 26.0 pg (27.0-31.0) L 11/28/18 05:45 MCHC Differential 32.4 pg (28.0-36.0) 11/28/18 05:45 RDW 16.3 % (11.5-20.0) 11/28/18 05:45 Plt Count 298 Th/cmm (150-400) 11/28/18 05:45 MPV 7.5 fl 11/28/18 05:45 Neutrophils % 65.4 % (40.0-80.0) 11/28/18 05:45 Lymphocytes % 11.4 % (20.0-50.0) L 11/28/18 05:45 Monocytes % 10.1 % (2.0-10.0) H 11/28/18 05:45 Eosinophils % 13.0 % (0.0-5.0) H 11/28/18 05:45 Basophils % 0.1 % (0.0-2.0) 11/28/18 05:45 Sodium 137 mEq/L (136-145) 11/28/18 05:45 Potassium 4.0 mEq/L (3.5-5.1) 11/28/18 05:45 Chloride 103 mEq/L (98-107) 11/28/18 05:45 Carbon Dioxide 26.6 mEq/L (21.0-31.0) 11/28/18 05:45 Anion Gap 11.4 (7.0-16.0) 11/28/18 05:45 BUN 10 mg/dL (7-25) 11/28/18 05:45 Creatinine 0.9 mg/dL (0.6-1.2) 11/28/18 05:45 Est GFR ( Amer) TNP 11/28/18 05:45 Est GFR (Non-Af Amer) TNP 11/28/18 05:45 BUN/Creatinine Ratio 11.1 11/28/18 05:45 Glucose 121 mg/dL (70-105) H 11/28/18 05:45 Calcium 9.3 mg/dL (8.6-10.3) 11/28/18 05:45 Phosphorus 3.2 mg/dL (2.5-5.0) 11/25/18 17:22 Magnesium 2.2 mg/dL (1.9-2.7) 11/25/18 17:22 Total Bilirubin 0.2 mg/dL (0.3-1.0) L 11/28/18 05:45 AST 16 U/L (13-39) 11/28/18 05:45 ALT 16 U/L (7-52) 11/28/18 05:45 Alkaline Phosphatase 87 U/L (34-104) 11/28/18 05:45 Total Protein 6.2 gm/dL (6.0-8.3) 11/28/18 05:45 Albumin 3.7 gm/dL (3.7-5.3) 11/28/18 05:45 Globulin 2.5 gm/dL 11/28/18 05:45 Albumin/Globulin Ratio 1.5 (1.0-1.8) 11/28/18 05:45 TSH 3.32 uIU/ml (0.34-5.60) 11/25/18 17:22 Urine Source CLEAN C 11/25/18 17:47 Urine Color YELLOW 11/25/18 17:47 Urine Clarity CLOUDY (CLEAR) H 11/25/18 17:47 Urine pH 6.0 (4.6 - 8.0) 11/25/18 17:47 Ur Specific [place] >= 1.030 (1.005-1.030) 11/25/18 17:47 Urine Protein 30 mg/dL (NEGATIVE) H 11/25/18 17:47 Urine Glucose (UA) NEGATIVE mg/dL (NEGATIVE) 11/25/18 17:47 Urine Ketones NEGATIVE mg/dL (NEGATIVE) 11/25/18 17:47 Urine Blood SMALL (NEGATIVE) H 11/25/18 17:47 Urine Nitrate POSITIVE (NEGATIVE) H 11/25/18 17:47 Urine Bilirubin NEGATIVE (NEGATIVE) 11/25/18 17:47 Urine Urobilinogen 0.2 E.U./dL (0.2 - 1.0) 11/25/18 17:47 Ur Leukocyte Esterase MODERATE (NEGATIVE) H 11/25/18 17:47 Urine RBC 0-2 /hpf (0-5) 11/25/18 17:47 Urine WBC 25-50 /hpf (0-5) H 11/25/18 17:47 Ur Epithelial Cells FEW /lpf (FEW) 11/25/18 17:47 Urine Bacteria FEW /hpf (NONE SEEN) 11/25/18 17:47 Stool Occult Blood NEGATIVE (NEGATIVE) 11/27/18 12:17 Urine Opiates Screen NEGATIVE (NEGATIVE) 11/25/18 17:47 Urine Methadone Screen NEGATIVE (NEGATIVE) 11/25/18 17:47 Ur Barbiturates Screen NEGATIVE (NEGATIVE) 11/25/18 17:47 Ur Tricyclics Screen NEGATIVE (NEGATIVE) 11/25/18 17:47 Ur Phencyclidine Scrn NEGATIVE (NEGATIVE) 11/25/18 17:47 Amphetamines Screen NEGATIVE (NEGATIVE) 11/25/18 17:47 U Methamphetamines Scrn NEGATIVE (NEGATIVE) 11/25/18 17:47 U Benzodiazepines Scrn POSITIVE (NEGATIVE) H 11/25/18 17:47 U Cocaine Metab Screen NEGATIVE (NEGATIVE) 11/25/18 17:47 U Cannabinoids Screen NEGATIVE (NEGATIVE) 11/25/18 17:47 - Physical Exam Vitals and I&O: Vital Signs Temp 97.2 F 11/28/18 04:00 Pulse 86 11/28/18 09:30 Resp 18 11/28/18 07:00 BP 134/64 11/28/18 09:30 Pulse Ox 99 11/28/18 07:00 Intake & Output 11/27/18 11/28/18 11/28/18 18:59 06:59 18:59 Intake Total 1000 1050 Balance 1000 1050 Intake: Intake, IV Amount 1000 1050 Levofloxacin 250mg/50mL 50 250 mg In 50 ml @ 50 mls/ hr IV HS [facility] Rx#: [id number] Sodium Chloride 0.45% 1, 1000 1000 000 ml @ 75 mls/hr IV . [id number] [facility] Rx#:[id number] Other: Stool Characteristics Black Active Medications: Current Medications Acetaminophen (Tylenol) 650 mg PO Q4H PRN PRN Reason: MILD PAIN Albuterol/Ipratropium (Duoneb Neb) 3 ml HHN Q6HRT [facility] Stop: 01/25/19 11:59 Last Admin: 11/28/18 06:44 Dose: 3 ml Allopurinol (Zyloprim) 200 mg PO DAILY [facility] Stop: 01/25/19 09:29 Last Admin: 11/28/18 09:29 Dose: 200 mg Amlodipine Besylate (Norvasc) 5 mg PO DAILY [facility] Stop: 01/25/19 09:29 Last Admin: 11/28/18 09:30 Dose: 5 mg Ascorbic Acid (Vitamin C) 500 mg PO TID [facility] Stop: 01/25/19 09:29 Last Admin: 11/28/18 09:29 Dose: 500 mg Atorvastatin Calcium (Lipitor) 40 mg PO HS [facility] Stop: 01/25/19 20:59 Last Admin: 11/27/18 20:29 Dose: 40 mg Betamethasone/Clotrimazole (Lotrisone Cream) 1 appl TP BID [facility] Stop: 01/27/19 08:59 Last Admin: 11/28/18 09:28 Dose: 1 appl Budesonide (Pulmicort) 0.5 mg HHN BIDRT [facility] Stop: 01/25/19 11:59 Last Admin: 11/28/18 06:44 Dose: 0.5 mg Clopidogrel Bisulfate (Plavix) 75 mg PO DAILY [facility] Stop: 01/25/19 09:29 Last Admin: 11/28/18 09:29 Dose: 75 mg Cyanocobalamin (Vitamin B12) 1,000 mcg PO Q120H [facility] Stop: 01/25/19 09:14 Diphenhydramine HCl (Benadryl) 25 mg PO TID PRN PRN Reason: Itching Stop: 01/26/19 22:01 Last Admin: 11/27/18 22:18 Dose: 25 mg Docusate Sodium (Colace) 100 mg PO BID [facility] Stop: 01/25/19 09:29 Last Admin: 11/28/18 09:29 Dose: 100 mg Donepezil HCl (Aricept) 10 mg PO HS [facility] Stop: 01/25/19 20:59 Last Admin: 11/27/18 20:29 Dose: 10 mg Escitalopram Oxalate (Lexapro) 5 mg PO DAILY [facility]; Protocol Stop: 01/25/19 09:29 Last Admin: 11/28/18 09:28 Dose: 5 mg Famotidine (Pepcid) 20 mg PO DAILY [facility] Stop: 01/25/19 09:29 Last Admin: 11/28/18 09:29 Dose: 20 mg Ferrous Sulfate (Iron) 300 mg PO TID [facility] Stop: 01/25/19 09:29 Last Admin: 11/28/18 09:28 Dose: 300 mg Gabapentin (Neurontin) 100 mg PO TID [facility] Stop: 01/25/19 09:29 Last Admin: 11/28/18 09:29 Dose: 100 mg Guaifenesin/Dextromethorphan (Robitussin Dm) 10 ml PO Q6H PRN PRN Reason: Cough Stop: 01/25/19 09:14 Last Admin: 11/27/18 00:02 Dose: 10 ml Sodium Chloride (Nacl 0.45%) 1,000 mls @ 75 mls/hr IV .[id number] [facility] Stop: 01/24/19 19:51 Last Admin: 11/28/18 06:01 Dose: 75 mls/hr Levofloxacin (Levaquin Pb) 250 mg in 50 mls @ 50 mls/hr IV HS [facility] Stop: 01/25/19 20:59 Last Infusion: 11/27/18 21:29 Dose: Infused Ibuprofen (Motrin) 400 mg PO Q6H PRN PRN Reason: MOD/SEVERE PAIN Stop: 01/25/19 09:14 Lactobacillus Rhamnosus (Culturelle 15b) 1 each PO DAILY [facility] Stop: 01/26/19 08:59 Last Admin: 11/28/18 09:30 Dose: 1 each Levothyroxine Sodium (Synthroid) 0.05 mg PO DAILY [facility] Stop: 01/25/19 09:29 Last Admin: 11/28/18 09:28 Dose: 0.05 mg Lorazepam (Ativan) 1 mg IVP Q6H PRN; Protocol PRN Reason: Agitation Stop: 01/25/19 20:02 Last Admin: 11/27/18 12:08 Dose: 1 mg Magnesium Hydroxide (Milk Of Magnesia) 30 ml PO DAILY PRN PRN Reason: IF DSS INEFFECTIVE Stop: 01/25/19 09:14 Last Admin: 11/26/18 17:27 Dose: 30 ml Metoprolol Tartrate (Lopressor) 50 mg PO BID [facility] Stop: 01/25/19 09:29 Last Admin: 11/28/18 09:29 Dose: 50 mg Mineral Oil (Fleet Mineral Oil) 135 ml RC DAILY PRN PRN Reason: IF DULCOLAX INEFFECTIVE Stop: 01/25/19 09:14 Miscellaneous (Probiotic Screen) 1 ea MC PRN PRN PRN Reason: PROTOCOL Stop: 01/25/19 09:16 Mupirocin (Bactroban Oint) 1 appl NS BID [facility] Stop: 12/01/18 17:01 Last Admin: 11/28/18 09:28 Dose: 1 appl Nitroglycerin (Nitrostat) 0.4 mg SL Q5MIN PRN PRN Reason: CHEST PAIN X3 Stop: 01/25/19 09:14 General: weak, alert HEENT: PERRLA, throat clear Neck: Supple Lungs: CTAB Cardiovascular: RRR, Normal S1, Normal S2 Abdomen: soft, non-tender Extremities: pain (neuropathy) Neurological: no change Internal Medicine Assmt/Plan - Assessment Assessment: uti weakness generalized h/o htn gout arthritis cad MDD hyperlipidemia anemia-iron deficiency gerd hypothyroidism neuropathy depression - Plan Plan: antibiotics monitor vitals, labs urine cultures diet cpm Nutritional Asmnt/Malnutr-PDOC - Dietary Evaluation Malnutrition Findings (Please click <Entered> for more info): Nutritional Asmnt/Malnutrition Start: 11/26/18 12: 46 Text: Status: Active Freq: Protocol: Document 11/26/18 12:54 RHAQUE (Rec: 11/26/18 13:01 RHAQOMAR [email or web address]) Nutritional Asmnt/Malnutrition Patient General Information Nutritional Screening High Risk Diagnosis Dehydration, UTI, Weakness Pertinent Medical Hx/Surgical Hx Asthma, HTN, Gout, Arthritis, MDD, Hyperlipidemia, CAD, iron def anemia, Neuropathy, Hypothyroidism Subjective Information Pt was fast asleep with lunch in front of her during visit. Spoke to TEJAL Mock, she claimed that Pt is mostly span speaking, but has been eating some of her meals. No record of B.M as yet, but has only been here for ~1 day. TEJAL Mock later informed me that the Pt has no teeth, so her diet may need to be changed after possible Swallow eval. Supplementation with Ensure TID was recommended. Current Diet Order/ Nutrition Support [facility] Soft texture w Regular Liquid Consistency Patient / S.O Can't verbalize diet edu Pertinent Medications Allopurinol, Vit C, Plavix, Colace, Pepcid, Iron, Gabapentin, Synthroid Pertinent Labs Gluc 109 H Nutritional Hx/Data Height 1.6 m Height (Calculated Centimeters) 160.0 Current Weight (lbs) 81.647 kg Weight (Calculated Kilograms) 81.6 Weight (Calculated Grams) 07225.6 [place] Body Weight 115 % [place] Body Weight 139 Body Mass Index (BMI) 31.8 Weight Status Overweight GI Symptoms GI Symptoms None Last BM No record Difficult in: None Food Allergies No Cultural/Ethnic/Sikh Belief None noted. Skin Integrity/Comment: Felipe score 16 Current %PO Negligible < 25% Estimated Nutritional Goals BEE in Kcals: Adj wt of IBW Calories/Kcals/Kg 25-30 Kcals Calculated 8236-8967 Protein: Adj wt of IBW Protein g/k.8-1 Protein Calculated 48-60 Fluid: ml 6770-0253 Nutritional Problem 1. Problem Problem Inadequate oral food intake d/ t Etiology incorrect diet order aeb Signs/Symptoms: negligible PO intake Malnutrition Alert Is there a minimum of two criteria No selected? Query Text:Check all the applicable criteria. A minimum of two criteria are recommended for diagnosis of either severe or non-severe malnutrition. Malnutrition Related to Morbid Obesity Malnutrition related to morbid obesity No Intervention/Recommendation Recommendations by RD Protein supplementation Add supplement feedings Comments Change diet to softer consistency to account for lack of dentition. Add supplemental feedings with Ensure TID to facilitate PO intake. Expected Outcomes/Goals Expected Outcomes/Goals Maintain 100% PO intake Labs return WNL Monitor for constipation, no record of B.M.s since admission F/U in 3-5 days as
--- NOTE | 2018-11-28 14:47 | Infectious Disease Prog Note ---
Infectious Disease Subjective - Review of Systems Service Date: 11/28/18 Subjective: No fever. Infectious Disease Objective - Results Result Diagrams: 11/28/18 05:45 11/28/18 05:45 Recent Labs: Laboratory Last Values WBC 8.7 Th/cmm (4.8-10.8) 11/28/18 05:45 RBC 4.27 Mil/cmm (3.80-5.20) 11/28/18 05:45 Hgb 11.1 gm/dL (12-16) L 11/28/18 05:45 Hct 34.3 % (41.0-60) L 11/28/18 05:45 MCV 80.4 fl (81-100) L 11/28/18 05:45 MCH 26.0 pg (27.0-31.0) L 11/28/18 05:45 MCHC Differential 32.4 pg (28.0-36.0) 11/28/18 05:45 RDW 16.3 % (11.5-20.0) 11/28/18 05:45 Plt Count 298 Th/cmm (150-400) 11/28/18 05:45 MPV 7.5 fl 11/28/18 05:45 Neutrophils % 65.4 % (40.0-80.0) 11/28/18 05:45 Lymphocytes % 11.4 % (20.0-50.0) L 11/28/18 05:45 Monocytes % 10.1 % (2.0-10.0) H 11/28/18 05:45 Eosinophils % 13.0 % (0.0-5.0) H 11/28/18 05:45 Basophils % 0.1 % (0.0-2.0) 11/28/18 05:45 Sodium 137 mEq/L (136-145) 11/28/18 05:45 Potassium 4.0 mEq/L (3.5-5.1) 11/28/18 05:45 Chloride 103 mEq/L (98-107) 11/28/18 05:45 Carbon Dioxide 26.6 mEq/L (21.0-31.0) 11/28/18 05:45 Anion Gap 11.4 (7.0-16.0) 11/28/18 05:45 BUN 10 mg/dL (7-25) 11/28/18 05:45 Creatinine 0.9 mg/dL (0.6-1.2) 11/28/18 05:45 Est GFR ( Amer) TNP 11/28/18 05:45 Est GFR (Non-Af Amer) TNP 11/28/18 05:45 BUN/Creatinine Ratio 11.1 11/28/18 05:45 Glucose 121 mg/dL (70-105) H 11/28/18 05:45 Calcium 9.3 mg/dL (8.6-10.3) 11/28/18 05:45 Phosphorus 3.2 mg/dL (2.5-5.0) 11/25/18 17:22 Magnesium 2.2 mg/dL (1.9-2.7) 11/25/18 17:22 Total Bilirubin 0.2 mg/dL (0.3-1.0) L 11/28/18 05:45 AST 16 U/L (13-39) 11/28/18 05:45 ALT 16 U/L (7-52) 11/28/18 05:45 Alkaline Phosphatase 87 U/L (34-104) 11/28/18 05:45 Total Protein 6.2 gm/dL (6.0-8.3) 11/28/18 05:45 Albumin 3.7 gm/dL (3.7-5.3) 11/28/18 05:45 Globulin 2.5 gm/dL 11/28/18 05:45 Albumin/Globulin Ratio 1.5 (1.0-1.8) 11/28/18 05:45 TSH 3.32 uIU/ml (0.34-5.60) 11/25/18 17:22 Urine Source CLEAN C 11/25/18 17:47 Urine Color YELLOW 11/25/18 17:47 Urine Clarity CLOUDY (CLEAR) H 11/25/18 17:47 Urine pH 6.0 (4.6 - 8.0) 11/25/18 17:47 Ur Specific [place] >= 1.030 (1.005-1.030) 11/25/18 17:47 Urine Protein 30 mg/dL (NEGATIVE) H 11/25/18 17:47 Urine Glucose (UA) NEGATIVE mg/dL (NEGATIVE) 11/25/18 17:47 Urine Ketones NEGATIVE mg/dL (NEGATIVE) 11/25/18 17:47 Urine Blood SMALL (NEGATIVE) H 11/25/18 17:47 Urine Nitrate POSITIVE (NEGATIVE) H 11/25/18 17:47 Urine Bilirubin NEGATIVE (NEGATIVE) 11/25/18 17:47 Urine Urobilinogen 0.2 E.U./dL (0.2 - 1.0) 11/25/18 17:47 Ur Leukocyte Esterase MODERATE (NEGATIVE) H 11/25/18 17:47 Urine RBC 0-2 /hpf (0-5) 11/25/18 17:47 Urine WBC 25-50 /hpf (0-5) H 11/25/18 17:47 Ur Epithelial Cells FEW /lpf (FEW) 11/25/18 17:47 Urine Bacteria FEW /hpf (NONE SEEN) 11/25/18 17:47 Stool Occult Blood NEGATIVE (NEGATIVE) 11/27/18 12:17 Urine Opiates Screen NEGATIVE (NEGATIVE) 11/25/18 17:47 Urine Methadone Screen NEGATIVE (NEGATIVE) 11/25/18 17:47 Ur Barbiturates Screen NEGATIVE (NEGATIVE) 11/25/18 17:47 Ur Tricyclics Screen NEGATIVE (NEGATIVE) 11/25/18 17:47 Ur Phencyclidine Scrn NEGATIVE (NEGATIVE) 11/25/18 17:47 Amphetamines Screen NEGATIVE (NEGATIVE) 11/25/18 17:47 U Methamphetamines Scrn NEGATIVE (NEGATIVE) 11/25/18 17:47 U Benzodiazepines Scrn POSITIVE (NEGATIVE) H 11/25/18 17:47 U Cocaine Metab Screen NEGATIVE (NEGATIVE) 11/25/18 17:47 U Cannabinoids Screen NEGATIVE (NEGATIVE) 11/25/18 17:47 - Physical Exam Vitals and I&O: Vital Signs Temp 97.2 F 11/28/18 04:00 Pulse 72 11/28/18 13:40 Resp 18 11/28/18 13:40 BP 134/64 11/28/18 09:30 Pulse Ox 97 11/28/18 13:40 Intake & Output 11/27/18 11/28/18 11/28/18 18:59 06:59 18:59 Intake Total 1000 1050 Balance 1000 1050 Intake: Intake, IV Amount 1000 1050 Levofloxacin 250mg/50mL 50 250 mg In 50 ml @ 50 mls/ hr IV HS [facility] Rx#: [id number] Sodium Chloride 0.45% 1, 1000 1000 000 ml @ 75 mls/hr IV . [id number] [facility] Rx#:[id number] Other: Stool Characteristics Black Active Medications: Current Medications Acetaminophen (Tylenol) 650 mg PO Q4H PRN PRN Reason: MILD PAIN Albuterol/Ipratropium (Duoneb Neb) 3 ml HHN Q6HRT [facility] Stop: 01/25/19 11:59 Last Admin: 11/28/18 12:28 Dose: 3 ml Allopurinol (Zyloprim) 200 mg PO DAILY [facility] Stop: 01/25/19 09:29 Last Admin: 11/28/18 09:29 Dose: 200 mg Amlodipine Besylate (Norvasc) 5 mg PO DAILY [facility] Stop: 01/25/19 09:29 Last Admin: 11/28/18 09:30 Dose: 5 mg Ascorbic Acid (Vitamin C) 500 mg PO TID [facility] Stop: 01/25/19 09:29 Last Admin: 11/28/18 09:29 Dose: 500 mg Atorvastatin Calcium (Lipitor) 40 mg PO HS [facility] Stop: 01/25/19 20:59 Last Admin: 11/27/18 20:29 Dose: 40 mg Betamethasone/Clotrimazole (Lotrisone Cream) 1 appl TP BID [facility] Stop: 01/27/19 08:59 Last Admin: 11/28/18 09:28 Dose: 1 appl Budesonide (Pulmicort) 0.5 mg HHN BIDRT [facility] Stop: 01/25/19 11:59 Last Admin: 11/28/18 06:44 Dose: 0.5 mg Clopidogrel Bisulfate (Plavix) 75 mg PO DAILY [facility] Stop: 01/25/19 09:29 Last Admin: 11/28/18 09:29 Dose: 75 mg Cyanocobalamin (Vitamin B12) 1,000 mcg PO Q120H [facility] Stop: 01/25/19 09:14 Diphenhydramine HCl (Benadryl) 25 mg PO TID PRN PRN Reason: Itching Stop: 01/26/19 22:01 Last Admin: 11/27/18 22:18 Dose: 25 mg Docusate Sodium (Colace) 100 mg PO BID [facility] Stop: 01/25/19 09:29 Last Admin: 11/28/18 09:29 Dose: 100 mg Donepezil HCl (Aricept) 10 mg PO HS [facility] Stop: 01/25/19 20:59 Last Admin: 11/27/18 20:29 Dose: 10 mg Escitalopram Oxalate (Lexapro) 5 mg PO DAILY [facility]; Protocol Stop: 01/25/19 09:29 Last Admin: 11/28/18 09:28 Dose: 5 mg Famotidine (Pepcid) 20 mg PO DAILY [facility] Stop: 01/25/19 09:29 Last Admin: 11/28/18 09:29 Dose: 20 mg Ferrous Sulfate (Iron) 300 mg PO TID [facility] Stop: 01/25/19 09:29 Last Admin: 11/28/18 09:28 Dose: 300 mg Fluticasone Propionate (Flonase) 2 spr NS DAILY [facility] Stop: 01/28/19 08:59 Gabapentin (Neurontin) 100 mg PO TID [facility] Stop: 01/25/19 09:29 Last Admin: 11/28/18 09:29 Dose: 100 mg Guaifenesin/Dextromethorphan (Robitussin Dm) 10 ml PO Q6H PRN PRN Reason: Cough Stop: 01/25/19 09:14 Last Admin: 11/27/18 00:02 Dose: 10 ml Sodium Chloride (Nacl 0.45%) 1,000 mls @ 75 mls/hr IV .[id number] [facility] Stop: 01/24/19 19:51 Last Admin: 11/28/18 06:01 Dose: 75 mls/hr Levofloxacin (Levaquin Pb) 250 mg in 50 mls @ 50 mls/hr IV [facility] Stop: 01/25/19 20:59 Last Infusion: 11/27/18 21:29 Dose: Infused Ibuprofen (Motrin) 400 mg PO Q6H PRN PRN Reason: MOD/SEVERE PAIN Stop: 01/25/19 09:14 Ibuprofen (Motrin) 600 mg PO Q12H [facility] Stop: 01/27/19 14:29 Lactobacillus Rhamnosus (Culturelle 15b) 1 each PO DAILY [facility] Stop: 01/26/19 08:59 Last Admin: 11/28/18 09:30 Dose: 1 each Levothyroxine Sodium (Synthroid) 0.05 mg PO DAILY [facility] Stop: 01/25/19 09:29 Last Admin: 11/28/18 09:28 Dose: 0.05 mg Lorazepam (Ativan) 1 mg IVP Q6H PRN; Protocol PRN Reason: Agitation Stop: 01/25/19 20:02 Last Admin: 11/27/18 12:08 Dose: 1 mg Magnesium Hydroxide (Milk Of Magnesia) 30 ml PO DAILY PRN PRN Reason: IF DSS INEFFECTIVE Stop: 01/25/19 09:14 Last Admin: 11/26/18 17:27 Dose: 30 ml Metoprolol Tartrate (Lopressor) 50 mg PO BID [facility] Stop: 01/25/19 09:29 Last Admin: 11/28/18 09:29 Dose: 50 mg Mineral Oil (Fleet Mineral Oil) 135 ml RC DAILY PRN PRN Reason: IF DULCOLAX INEFFECTIVE Stop: 01/25/19 09:14 Miscellaneous (Probiotic Screen) 1 ea MC PRN PRN PRN Reason: PROTOCOL Stop: 01/25/19 09:16 Mupirocin (Bactroban Oint) 1 appl NS BID [facility] Stop: 12/01/18 17:01 Last Admin: 11/28/18 09:28 Dose: 1 appl Nitroglycerin (Nitrostat) 0.4 mg SL Q5MIN PRN PRN Reason: CHEST PAIN X3 Stop: 01/25/19 09:14 General: no acute distress, well developed, well nourished HEENT: atraumatic, normocephalic, PERRLA, EOMI Neck: supple, no thyromegaly Cardiovascular: S1S2, regular Lungs: clear to auscultation bilaterally, clear to percussion Abdomen: soft, no tender, no distended Extremities: no cyanosis, no clubbing, no edema Neurological: awake, alert Skin: intact Infectious Disease Assmt/Plan - Assessment Assessment: 1. UTI: Klebsiella. 2. Metabolic encephalopathy. 3. Asthma. 4, HTN. 5. CAD. 6. MRSA colonization. - Plan Plan: May continue levaquin for total 7 days. Nutritional Asmnt/Malnutr-PDOC - Dietary Evaluation Malnutrition Findings (Please click <Entered> for more info): Nutritional Asmnt/Malnutrition Start: 11/26/18 12: 46 Text: Status: Active Freq: Protocol: Document 11/26/18 12:54 RHAQUE (Rec: 11/26/18 13:01 RHAQUE [id number]) Nutritional Asmnt/Malnutrition Patient General Information Nutritional Screening High Risk Diagnosis Dehydration, UTI, Weakness Pertinent Medical Hx/Surgical Hx Asthma, HTN, Gout, Arthritis, MDD, Hyperlipidemia, CAD, iron def anemia, Neuropathy, Hypothyroidism Subjective Information Pt was fast asleep with lunch in front of her during visit. Spoke to TEJAL Mock, she claimed that Pt is mostly span speaking, but has been eating some of her meals. No record of B.M as yet, but has only been here for ~1 day. TEAJL Mock later informed me that the Pt has no teeth, so her diet may need to be changed after possible Swallow eval. Supplementation with Ensure TID was recommended. Current Diet Order/ Nutrition Support Mech Soft texture w Regular Liquid Consistency Patient / S.O Can't verbalize diet edu Pertinent Medications Allopurinol, Vit C, Plavix, Colace, Pepcid, Iron, Gabapentin, Synthroid Pertinent Labs Gluc 109 H Nutritional Hx/Data Height 1.6 m Height (Calculated Centimeters) 160.0 Current Weight (lbs) 81.647 kg Weight (Calculated Kilograms) 81.6 Weight (Calculated Grams) 71572.6 [place] Body Weight 115 % [place] Body Weight 139 Body Mass Index (BMI) 31.8 Weight Status Overweight GI Symptoms GI Symptoms None Last BM No record Difficult in: None Food Allergies No Cultural/Ethnic/Yazidi Belief None noted. Skin Integrity/Comment: Felipe score 16 Current %PO Negligible < 25% Estimated Nutritional Goals BEE in Kcals: Adj wt of IBW Calories/Kcals/Kg 25-30 Kcals Calculated 5179-4384 Protein: Adj wt of IBW Protein g/k.8-1 Protein Calculated 48-60 Fluid: ml 3108-7272 Nutritional Problem 1. Problem Problem Inadequate oral food intake d/ t Etiology incorrect diet order aeb Signs/Symptoms: negligible PO intake Malnutrition Alert Is there a minimum of two criteria No selected? Query Text:Check all the applicable criteria. A minimum of two criteria are recommended for diagnosis of either severe or non-severe malnutrition. Malnutrition Related to Morbid Obesity Malnutrition related to morbid obesity No Intervention/Recommendation Recommendations by RD Protein supplementation Add supplement feedings Comments Change diet to softer consistency to account for lack of dentition. Add supplemental feedings with Ensure TID to facilitate PO intake. Expected Outcomes/Goals Expected Outcomes/Goals Maintain 100% PO intake Labs return WNL Monitor for constipation, no record of B.M.s since admission F/U in 3-5 days as MR
[2018-11-29] MEDS ORDERED: Fluticasone Propionate Nasal 1 SPR SPR NS SCH (09:00)
== END 2018-11-28 19:20 | DRG 689 ==
LOC: ER 16:58 → MSI 19:10
PROVIDERS: ADMIT Internal Medicine; ATTEND Internal Medicine
DX: N39.0 Urinary tract infection, site not specified (principal); G93.41 Metabolic encephalopathy; I10 Essential (primary) hypertension; M10.9 Gout, unspecified; I25.10 Atherosclerotic heart disease of native coronary artery without angina pectoris; D50.9 Iron deficiency anemia, unspecified; K21.9 Gastro-esophageal reflux disease without esophagitis; G62.9 Polyneuropathy, unspecified; F32.9 Major depressive disorder, single episode, unspecified; J44.9 Chronic obstructive pulmonary disease, unspecified; E86.0 Dehydration; D64.9 Anemia, unspecified; F19.90 Other psychoactive substance use, unspecified, uncomplicated; M19.90 Unspecified osteoarthritis, unspecified site; E78.5 Hyperlipidemia, unspecified; E03.9 Hypothyroidism, unspecified; B96.1 Klebsiella pneumoniae [K. pneumoniae] as the cause of diseases classified elsewhere; Z22.322 Carrier or suspected carrier of Methicillin resistant Staphylococcus aureus
CPT/HCPCS: 36415-UA; 71045-TC; 80048-TC; 80053-TC; 80307; 81001-TC; 82270-TC; 83735-TC; 84100-TC; 84443-TC; 85025-TC; 87086-90; 93005; 94640; 94760; J0696; J1956; J2060; J2543; J7030; Z7610

== ENCOUNTER 2019-11-21 15:41 | Inpatient (IN) | payer MEDICARE, MEDICAID ==
[2019-11-21 23:08] VITALS: BP 142/92
[2019-11-22] MEDS ORDERED: Magnesium Hydroxide (MOM) 30 mL UDC PO PRN (00:31)
[2019-11-22] MEDS: Levothyroxine 0.05 Mg Tab PO SCH (06:49)
[2019-11-22] MEDS: Ferrous Sulfate 325 MG TAB PO SCH ×3 (08:36→21:18)
[2019-11-22] MEDS: Pantoprazole 40 mg/Packet PO SCH (08:36)
[2019-11-22] MEDS: Multivitamin w/ Minerals Tab PO SCH (08:36)
[2019-11-22] MEDS: Vitamin D3 2,000 IU SGL PO SCH (08:36)
[2019-11-22] MEDS: Escitalopram Oxalate 5 mg Tab PO SCH (08:37)
[2019-11-22] MEDS ORDERED: Multivitamin Tab PO SCH (09:00)
--- NOTE | 2019-11-22 12:37 | History and Physical ---
History of Present Illness - HPI Chief Complaint: 84 y/o female patient was brought into ER for evaluation due to Increased confusion and Depression. HPI: 84 y/o female patient was admitted to [facility] for evaluation due to Increased confusion and Depression. Patient has history of Hypertension, Gouty Arthritis, Coronary artery disease, Hyperlipidemia, Iron deficiency anemia, Neuropathy and Depression. Patient had an ER assessment and a complete workup was done. Patient will have a Psych evaluation. Patient was diagnosed with Psychosis and Major Depression disorder. I will treat, monitor and follow patient. Patient will continue current treatment plan as ordered. Vital Signs: Last Vital Signs Temp 97.6 F 11/22/19 06:26 Pulse 86 11/22/19 08:37 Resp 19 11/22/19 06:26 BP 117/83 11/22/19 08:37 Pulse Ox 97 11/22/19 06:26 Past Medical History Cardiovascular: Report: CAD, HTN, Hyperlipidemia Pulmonary: Report: No Pertinent Hx TOOL REPAIRER: Report: No Pertinent Hx GI: Report: No Pertinent Hx Psych: Report: Depression, Psychosis Musculoskeletal: Report: Other (Gouty Arthritis.) Family Medical History - Family Member Mother History Unknown: Yes Ethnicity: Unknown Living Status: Still Living Health Maintenance Health Maintenance: Other (Please see chart.) - Medications Home Medications: Home Medication Medication Instructions Recorded Type Acetaminophen [Tylenol] 650 mg PO Q4H PRN 11/25/18 History Allopurinol 200 mg PO DAILY 11/25/18 History Clopidogrel [Plavix] 75 mg PO DAILY 11/25/18 History Cyanocobalamin [Vitamin B12] 1,000 mcg PO DAILY 11/25/18 History Docusate Sodium 100 mg PO BID 11/25/18 History Donepezil Hcl [Aricept] 10 mg PO HS 11/25/18 History Escitalopram Oxalate [Lexapro] 5 mg PO DAILY 11/25/18 History Famotidine 20 mg PO HS 11/25/18 History Gabapentin 100 mg PO TID 11/25/18 History Ibuprofen 400 mg PO Q6H PRN 11/25/18 History Levothyroxine Sodium 50 mcg PO DAILY 11/25/18 History Magnesium Hydroxide [Milk of 30 ml PO DAILY PRN 11/25/18 History Magnesia] Melatonin 10 mg PO HS 11/25/18 History Nitroglycerin 0.4 mg SL Q5MIN PRN 11/25/18 History amLODIPine Besylate [Norvasc] 5 mg PO DAILY 11/25/18 History Cholecalciferol (Vitamin D3) 1 tab PO DAILY 11/21/19 History [Vitamin D3] Ferrous Sulfate 325 mg PO TID 11/21/19 History Fluticasone/Vilanterol [Breo 1 inh PO DAILY 11/21/19 History Ellipta 100-25 Mcg INH] Memantine [Namenda] 10 mg PO BID 11/21/19 History Multivitamin w/ Minerals 1 tab PO DAILY 11/21/19 History [Theragran M] Nitrofurantoin Monohyd/M-Cryst 100 mg PO BID 11/21/19 History [Macrobid 100 mg Capsule] Pantoprazole [Protonix] 40 mg PO DAILY 11/21/19 History Other Medications: Please see Medication reconciliation sheet. - Allergies Allergies/Adverse Reactions: Allergies Allergy/AdvReac Type Severity Reaction Status Date / Time No Known Allergies Allergy Verified 11/21/19 21:37 Review of Systems - Review of Systems Review of Systems: Patient is very confused and depressed, needs close monitoring. Constitutional: Report: No Significant Eyes: Report: No Significant ENT: Report: No Significant Respiratory: Report: No Significant Cardiovascular: Report: No Significant Gastrointestinal: Report: No Significant Genitourinary: Report: No Significant Musculoskeletal: Report: Other Skin: Report: No Significant Neurological: Report: Confusion Physical Exam - Physical Exam HEENT: Report: Ears Nose Throat within normal limits Neck: Report: Within normal limits Cardiovascular Systems: Report: +s1/s2 noted, Regular, Rate and Rhythm Respiratory: Report: Breath Sounds are within normal limits Abdomen: Report: Non-tender to palpation Back: Report: Inspection of back is within normal limits. Extremities: Report: Non-tender to palpation. Skin: Report: Color of skin is within normal limits Neuro/Psych: Report: Depressed affect - Lab Results All Lab Results last 24 hours: Please see orders. - Assessment Assessment: Psychosis. Major Depression disorder. History of Hypertension. History of Gouty Arthritis. History of Coronary artery disease. History of Hyperlipidemia. History of Iron deficiency anemia. History of Neuropathy. - Plan Plan: Psych consult. Psych management as per Psych. Monitor diet and nutritional support. Supportive care. Pain management. Monitor vitals and labs. Continue current treatment plan as ordered.
--- NOTE | 2019-11-22 14:35 | Psychiatric Evaluation ---
DATE OF SERVICE: 11/21/2019 PSYCHIATRIC EVALUATION AND MENTAL EXAMINATION IDENTIFYING DATA: The patient is an 84-year-old, resident of a [facility] facility that is the [facility]. JUSTIFICATION FOR HOSPITALIZATION: The patient is admitted here on a voluntary basis in view of her depression. CHIEF COMPLAINT: "I don't know, don't ask me." HISTORY OF PRESENT ILLNESS: This is the first psychiatric hospitalization to [facility] for this 84-year-old patient who is being followed up by Dr. Alejo on an outpatient basis. The patient has been diagnosed to have major depressive disorder and is maintained on low dose of Lexapro; however, prior to the hospitalization, the patient is reported to have been getting easily agitated, screaming and yelling and spitting at the staff. The patient could not be contained at a lower level of care and hence the patient has been admitted over here. Prior to her being admitted over here, the patient has been medically cleared at [facility]. PAST PSYCHIATRIC HISTORY: Details are not available at this time, but the patient is being treated for depression. MEDICAL HISTORY AND PHYSICAL EXAMINATION: Requested to be done by Dr. Olmstead. The patient has a history of hypertension, osteoarthritis, hypothyroidism, hyperlipidemia, gout, GERD, and the patient has a history of UTI and is on Macrobid 100 mg b.i.d. that was started 2 days prior to this hospitalization. SUBSTANCE ABUSE HISTORY: None. PHYSICAL OR SEXUAL ABUSE HISTORY: None. SOCIAL HISTORY: The patient is a resident of the [facility] unit. MENTAL STATUS EXAMINATION: The patient is an 84-year-old woman looking her stated age, superficially cooperative. Eye contact is poor. Mood is irritable. Affect is constricted. The patient is getting easily irritable. Insight and judgment at this time are noted to be very much impaired. Impulse control seems to be limited. Coping skills are noted to be limited. The patient is irritable and not able to contract for safety at this time. The patient has been having problem with impulse control. The patient has no insight into her illness. The patient's sleep is noted to be poor. Appetite is also noted to be very poor. The patient's attention span and concentration are noted to be poor at this time. Short term memory is noted to be very poor. Long-term memory seems to be fair. The patient has been having difficult time to give the name of this hospital and the time or year. The patient, however, has been stating that she knows and she does not want to talk. The patient is in need of care at this time prior to her being discharged. DIAGNOSTIC IMPRESSION: AXIS I: Major depressive disorder, recurrent and severe. IB: Dementia and behavioral changes, secondary trait. AXIS II: None. AXIS III: As per Dr. Olmstead. IMMEDIATE TREATMENT PLAN: The patient is going to be observed on the inpatient unit, provided with supportive psychotherapy. The patient is going to be closely monitored. Once stabilized, the patient is going to be discharged to [facility] to be followed up on an outpatient basis. [facility]# [id number]
[2019-11-22] MEDS ORDERED: Non-Formulary Item 1 EA (Melatonin [Melatonin] 10 MG) PO SCH (21:00)
[2019-11-23] MEDS: Levothyroxine 0.05 Mg Tab PO SCH (06:59)
[2019-11-23] MEDS: Pantoprazole 40 mg/Packet PO SCH (10:06)
[2019-11-23] MEDS: Vitamin D3 2,000 IU SGL PO SCH (10:06)
[2019-11-23] MEDS: Escitalopram Oxalate 5 mg Tab PO SCH (10:07)
[2019-11-23] MEDS: Ferrous Sulfate 325 MG TAB PO SCH ×3 (10:07→20:45)
[2019-11-23] MEDS: Multivitamin w/ Minerals Tab PO SCH (10:07)
--- NOTE | 2019-11-23 16:00 | Internal Medicine Prog Note ---
Internal Medicine Subjective - Subjective Service Date: 11/23/19 Patient seen and examined:: with staff Patient is:: awake Per staff patient has:: tolerating meds Internal Medicine Objective - Physical Exam Vitals and I&O: Vital Signs Temp 98.2 F 11/23/19 06:58 Pulse 69 11/23/19 10:08 Resp 18 11/23/19 06:58 BP 149/74 11/23/19 10:08 Pulse Ox 98 11/23/19 06:58 Intake & Output 11/22/19 11/23/19 11/23/19 18:59 06:59 18:59 Intake Total 750 120 Balance 750 120 Intake: Oral 750 120 Other: # Voids 3 Active Medications: Current Medications Acetaminophen (Tylenol) 650 mg PO Q4H PRN PRN Reason: Pain (Mild 1-3) Stop: 01/21/20 00:48 Allopurinol (Zyloprim) 200 mg PO DAILY [facility] Stop: 01/21/20 08:59 Last Admin: 11/23/19 10:07 Dose: 200 mg Amlodipine Besylate (Norvasc) 5 mg PO DAILY [facility] Stop: 01/21/20 08:59 Last Admin: 11/23/19 10:08 Dose: 5 mg Clopidogrel Bisulfate (Plavix) 75 mg PO DAILY [facility] Stop: 01/21/20 08:59 Last Admin: 11/23/19 10:06 Dose: 75 mg Cyanocobalamin (Vitamin B12) 1,000 mcg PO DAILY [facility] Stop: 01/21/20 08:59 Last Admin: 11/23/19 10:07 Dose: 1,000 mcg Docusate Sodium (Colace) 100 mg PO BID [facility] Stop: 01/21/20 08:59 Last Admin: 11/23/19 10:07 Dose: 100 mg Donepezil HCl (Aricept) 10 mg PO HS [facility] Stop: 01/21/20 20:59 Last Admin: 11/22/19 21:17 Dose: 10 mg Escitalopram Oxalate (Lexapro) 5 mg PO DAILY [facility]; Protocol Stop: 01/21/20 08:59 Last Admin: 11/23/19 10:07 Dose: 5 mg Famotidine (Pepcid) 20 mg PO HS [facility] Stop: 01/21/20 20:59 Last Admin: 11/22/19 21:18 Dose: 20 mg Ferrous Sulfate (Iron) 325 mg PO TID [facility] Stop: 01/21/20 08:59 Last Admin: 11/23/19 13:32 Dose: 325 mg Gabapentin (Neurontin) 100 mg PO TID [facility] Stop: 01/21/20 08:59 Last Admin: 11/23/19 13:32 Dose: 100 mg Ibuprofen (Motrin) 400 mg PO Q6H PRN PRN Reason: moderate to severe pain (4-10) Stop: 01/21/20 00:30 Levothyroxine Sodium (Synthroid) 0.05 mg PO QDAC [facility] Stop: 01/21/20 07:29 Last Admin: 11/23/19 06:59 Dose: 0.05 mg Lorazepam (Ativan) 0.5 mg PO Q4H PRN; Protocol PRN Reason: Anxiety Stop: 01/20/20 22:45 Magnesium Hydroxide (Milk Of Magnesia) 30 ml PO DAILY PRN PRN Reason: Constipation Stop: 01/21/20 00:30 Memantine (Namenda) 10 mg PO BID [facility] Stop: 01/21/20 08:59 Last Admin: 11/23/19 10:08 Dose: 10 mg Nitrofurantoin Macrocrystals (Macrobid) 100 mg PO BID [facility]; Protocol Stop: 01/21/20 08:59 Last Admin: 11/23/19 10:06 Dose: 100 mg Nitroglycerin (Nitrostat) 0.4 mg SL Q5MIN PRN PRN Reason: CHEST PAIN X3 Stop: 01/21/20 00:30 Pantoprazole Sodium (Protonix) 40 mg PO DAILY [facility] Stop: 01/21/20 08:59 Last Admin: 11/23/19 10:06 Dose: 40 mg Vitamin D (Vitamin D3) 2,000 iu PO DAILY [facility] Stop: 01/21/20 08:59 Last Admin: 11/23/19 10:06 Dose: 2,000 iu Zolpidem Tartrate (Ambien) 5 mg PO HS PRN PRN Reason: Insomnia Stop: 01/20/20 22:45 General: alert HEENT: NC/AT, PERRLA Neck: Supple Lungs: CTAB Cardiovascular: RRR Abdomen: soft, non-tender, non-distended Internal Medicine Assmt/Plan - Assessment Assessment: Psychosis. Major Depression disorder. History of Hypertension. History of Gouty Arthritis. History of Coronary artery disease. History of Hyperlipidemia. History of Iron deficiency anemia. History of Neuropathy. - Plan Plan: Psych consult. Psych management as per Psych. Monitor diet and nutritional support. Supportive care. Pain management. Monitor vitals and labs. Continue current treatment plan as ordered.
--- NOTE | 2019-11-23 20:55 | Progress Notes ---
DATE: 11/23/2019 SUBJECTIVE: The patient was resting in bed, alert, cooperative. The patient took her medications when the staff gave her medications. The patient appeared to be a poor historian. The patient was not able to say where she was living prior to coming here. The patient stated there was some place like this. When asked why she is here, the patient states "I don't know." When asked if she is happy or sad, the patient stated that she feels okay. When asked if she has any auditory or visual hallucinations or delusion, the patient denied. The patient stated that the staff at the other facility was rude to her. The patient stated that staff here has been nice. The patient stated that her son was here to see her this morning. OBJECTIVE: The staff reported that the patient has been doing okay. The patient has been cooperative with care and treatment. The patient took her medications without any problem. The staff reported that the patient complained that she does not have any clothes. The patient stated that she came in with what she has on. ASSESSMENT: 1. Major depressive disorder. 2. Mood disorder, depressed due to medical condition. 3. Alzheimer's dementia with depression. 4. Impulse control disorder, not otherwise specified. 5. Personality change due to medical condition. PLAN: We will continue the patient on current medication since the patient was just admitted yesterday. We will monitor the patient's respond to the Lexapro that she is on at this time. JOB# [id number]
[2019-11-24] MEDS: Levothyroxine 0.05 Mg Tab PO SCH (06:30)
[2019-11-24] MEDS: Vitamin D3 2,000 IU SGL PO SCH (08:42)
[2019-11-24] MEDS: Ferrous Sulfate 325 MG TAB PO SCH ×3 (08:42→20:44)
[2019-11-24] MEDS: Multivitamin w/ Minerals Tab PO SCH (08:42)
[2019-11-24] MEDS: Pantoprazole 40 mg/Packet PO SCH (08:43)
[2019-11-24] MEDS: Escitalopram Oxalate 5 mg Tab PO SCH (08:43)
--- NOTE | 2019-11-24 10:12 | Progress Notes ---
DATE: SUBJECTIVE: The patient was resting in bed when approached. The patient was alert. The patient reported that she slept well last night. The patient stated that she is hungry. When told that the tray is coming, the patient appeared to be impatient. The patient also reported that she has no cloths, she just have her gown and wanted to change into street clothes. The patient stated that she wants to go home. When asked where home is, the patient was not able to say where. The patient continued to appear to be depressed and anxious. OBJECTIVE: The patient was cooperative, but somewhat anxious and repeating herself that she wants to go home, even though she cannot remember where home is. Staff reported that the patient did okay last night. She slept well. The patient did take her medications and no behavioral issue at this time. ASSESSMENT: 1. Major depressive disorder. 2. Mood disorder, depressed due to medical condition. 3. Alzheimer's dementia with depression. 4. Impulse control disorder, not otherwise specified. 5. Personality change due to medical condition. PLAN: We will continue the patient on current medications and monitor the patient's response to her medications. [facility]# [id number]
--- NOTE | 2019-11-24 15:13 | Consultation ---
DATE OF CONSULTATION: 11/23/2019 REFERRING PHYSICIANS: Miguel Alejo MD and Genevieve Valenzuela MD. TYPE OF CONSULTATION: Psychology. HISTORY OF PRESENT ILLNESS: The patient is an 84-year-old female. The patient is a resident of [facility]. The patient is being admitted due to increased depression. The following is by record review and by the patient's self report. The staff at the patient's facility reports that the patient had become easily agitated with screaming and yelling episodes as well as several incidents of spitting at the staff. The patient was unable to be redirected or contained on a lower level and was therefore admitted here. The patient has been medically cleared at [facility]. Upon interview, the patient states she does not understand why she is being hospitalized and to not ask her any questions. The patient is easily agitated at the time of this clinical interview. The patient did not answer questions about experiencing any suicidal ideation, plan or intention. The patient remained dismissive and guarded. PAST MEDICAL HISTORY: Please see history and physical by Dr. Olmstead. PAST PSYCHIATRIC HISTORY: The patient is being seen by Dr. Miguel Alejo at her placement. The patient has a history of major depression as well as a history of dementia. It is unknown whether the patient received psychology services at her placement. The patient has had previous psychiatric hospitalizations. SUBSTANCE ABUSE HISTORY: Records indicate the patient has no history. The patient did not answer these questions. PSYCHOSOCIAL HISTORY: The patient did not answer these questions. The patient is a resident of a penitentiary. Records indicate the patient is and was raised Christian. The patient did not answer questions about occupational or educational history. Record review indicates the patient has 2 children, a daughter Becky and a son, Bear who are both involved in her care. Record review indicates no history of physical or sexual abuse or any current legal problems. The patient did not state whether she expects to return to her placement. MENTAL STATUS EXAMINATION: The patient appears to be her stated age. Attitude is guarded but superficially cooperative at times. Eye contact is poor. Speech is loud. Mood is irritable. Affect is constricted. The patient is getting easily irritated during the clinical assessment. Thought process shows ro be confused and needs further evaluation. The patient denied any auditory or visual hallucinations. The patient did not answer questions about suicidal ideation, plan or intention. However, the patient did shake her head as a "no" response to experiencing suicidal thoughts. Impulse control is poor and inadequate. The patient's behavior has been difficult to redirect on the unit. Concentration is poor. The patient is having difficulty sustaining focus and attention. Sensorium is alert and oriented to self only. The patient did not participate in the memory assessment beyond the request to repeat 3 items given to her the first time. The patient was unable to do so. It appears that immediate and short term memory is impaired. Long-term memory needs further evaluation. The patient is stating that she is probably not going to participate in a supportive psychotherapeutic engagement with this casualty underwriter. Insight is poor. Judgment is impaired. DIAGNOSTIC IMPRESSION AXIS I: 1. Major depressive disorder, recurrent, severe by history. 2. Dementia with behavioral disturbance by history. AXIS II: Deferred. AXIS III: Per Dr. Olmstead. TREATMENT PLAN: The patient has been seen by Dr. Valenzuela for psychiatric evaluation and for the management of the patient's psychotropic medications. We will provide supportive psychotherapy to include reality orientation, differentiation and integration. We will provide de-escalation as well as motivational enhancement and positive reinforcement for the patient to be able to become compliant and stay compliant with all aspects of her care and treatment. We will encourage the patient to follow through with staff direction as well as to respond to the treatment recommendations being offered by the staff. We will provide coping strategies for phase of life issues. We will follow up in 2-3 days and reassess the patient to determine if the patient has the capacity to benefit and willingness to participate in psychology services. Thank you, Dr. Alejo and Dr. Valenzuela for this consult and the opportunity to participate with you in this patient's care. JOB# [id number] AYLIN
--- NOTE | 2019-11-24 17:53 | Internal Medicine Prog Note ---
Internal Medicine Subjective - Subjective Service Date: 11/24/19 Patient is:: awake Per staff patient has:: tolerating meds Internal Medicine Objective - Physical Exam Vitals and I&O: Vital Signs Temp 98.2 F 11/24/19 14:00 Pulse 84 11/24/19 14:00 Resp 18 11/24/19 14:00 BP 137/80 11/24/19 14:00 Pulse Ox 97 11/24/19 14:00 Intake & Output 11/23/19 11/24/19 11/24/19 18:59 06:59 18:59 Intake Total 800 120 120 Balance 800 120 120 Intake: Oral 800 120 120 Other: # Voids 3 2 2 # Bowel Movements 0 0 0 Active Medications: Current Medications Acetaminophen (Tylenol) 650 mg PO Q4H PRN PRN Reason: Pain (Mild 1-3) Stop: 01/21/20 00:48 Allopurinol (Zyloprim) 200 mg PO DAILY [facility] Stop: 01/21/20 08:59 Last Admin: 11/24/19 08:42 Dose: 200 mg Amlodipine Besylate (Norvasc) 5 mg PO DAILY [facility] Stop: 01/21/20 08:59 Last Admin: 11/24/19 08:43 Dose: 5 mg Clopidogrel Bisulfate (Plavix) 75 mg PO DAILY [facility] Stop: 01/21/20 08:59 Last Admin: 11/24/19 08:43 Dose: 75 mg Cyanocobalamin (Vitamin B12) 1,000 mcg PO DAILY [facility] Stop: 01/21/20 08:59 Last Admin: 11/24/19 08:42 Dose: 1,000 mcg Docusate Sodium (Colace) 100 mg PO BID [facility] Stop: 01/21/20 08:59 Last Admin: 11/24/19 16:54 Dose: 100 mg Donepezil HCl (Aricept) 10 mg PO HS [facility] Stop: 01/21/20 20:59 Last Admin: 11/23/19 20:45 Dose: 10 mg Escitalopram Oxalate (Lexapro) 5 mg PO DAILY [facility]; Protocol Stop: 01/21/20 08:59 Last Admin: 11/24/19 08:43 Dose: 5 mg Famotidine (Pepcid) 20 mg PO HS [facility] Stop: 01/21/20 20:59 Last Admin: 11/23/19 20:45 Dose: 20 mg Ferrous Sulfate (Iron) 325 mg PO TID [facility] Stop: 01/21/20 08:59 Last Admin: 11/24/19 13:31 Dose: 325 mg Gabapentin (Neurontin) 100 mg PO TID [facility] Stop: 01/21/20 08:59 Last Admin: 11/24/19 13:31 Dose: 100 mg Ibuprofen (Motrin) 400 mg PO Q6H PRN PRN Reason: moderate to severe pain (4-10) Stop: 01/21/20 00:30 Levothyroxine Sodium (Synthroid) 0.05 mg PO QDAC [facility] Stop: 01/21/20 07:29 Last Admin: 11/24/19 06:30 Dose: 0.05 mg Lorazepam (Ativan) 0.5 mg PO Q4H PRN; Protocol PRN Reason: Anxiety Stop: 01/20/20 22:45 Magnesium Hydroxide (Milk Of Magnesia) 30 ml PO DAILY PRN PRN Reason: Constipation Stop: 01/21/20 00:30 Memantine (Namenda) 10 mg PO BID [facility] Stop: 01/21/20 08:59 Last Admin: 11/24/19 16:54 Dose: 10 mg Nitrofurantoin Macrocrystals (Macrobid) 100 mg PO BID [facility]; Protocol Stop: 01/21/20 08:59 Last Admin: 11/24/19 16:54 Dose: 100 mg Nitroglycerin (Nitrostat) 0.4 mg SL Q5MIN PRN PRN Reason: CHEST PAIN X3 Stop: 01/21/20 00:30 Pantoprazole Sodium (Protonix) 40 mg PO QDAC [facility] Stop: 01/24/20 07:29 Vitamin D (Vitamin D3) 2,000 iu PO DAILY [facility] Stop: 01/21/20 08:59 Last Admin: 11/24/19 08:42 Dose: 2,000 iu Zolpidem Tartrate (Ambien) 5 mg PO HS PRN PRN Reason: Insomnia Stop: 01/20/20 22:45 General: alert HEENT: NC/AT, PERRLA Neck: Supple Lungs: CTAB Cardiovascular: RRR Abdomen: soft, non-tender, non-distended Internal Medicine Assmt/Plan - Assessment Assessment: Psychosis. Major Depression disorder. History of Hypertension. History of Gouty Arthritis. History of Coronary artery disease. History of Hyperlipidemia. History of Iron deficiency anemia. History of Neuropathy. - Plan Plan: Psych consult. Psych management as per Psych. Monitor diet and nutritional support. Supportive care. Pain management. Monitor vitals and labs. Continue current treatment plan as ordered.
[2019-11-25] MEDS: Pantoprazole 40 mg/Packet PO SCH (06:42)
[2019-11-25] MEDS: Levothyroxine 0.05 Mg Tab PO SCH (06:42)
--- NOTE | 2019-11-25 08:30 | Progress Notes ---
DATE: 11/25/2019 SUBJECTIVE: The patient was seen in her room. The patient is awake, appears to be guarded, easily gets frustrated. The patient is a poor historian due to medical condition. Otherwise, the patient appears to be in no acute distress. OBJECTIVE: VITAL SIGNS: Temperature 97.1, heart rate 67, blood pressure 132/78, respirations 18, and 96% on room air. HEENT: Head is atraumatic and normocephalic. Eyes: Bilateral conjunctivae are clear. Bilateral pupils are equally round and reactive. NECK: Supple. No JVD. CARDIOVASCULAR: S1 and S2, without murmur. PULMONARY: Clear to auscultation. GASTROINTESTINAL: Soft and nontender without guarding. Positive bowel sounds. MUSCULOSKELETAL: No clubbing. No cyanosis noted. ASSESSMENT: 1. Dementia. 2. Depression. 3. Hypertension. 4. Arthritis. 5. Coronary artery disease. 6. Hyperlipidemia. PLAN: We will continue to keep the patient inpatient to Psychiatric Unit. We will put the patient on fall precaution and aspiration precautions. Treatment plans were discussed with the patient's nurse. Treatment plans were discussed with Dr. Olmstead. JOB# [id number]
[2019-11-25] MEDS: Multivitamin w/ Minerals Tab PO SCH (09:19)
[2019-11-25] MEDS: Vitamin D3 2,000 IU SGL PO SCH (09:19)
[2019-11-25] MEDS: Ferrous Sulfate 325 MG TAB PO SCH ×3 (09:20→20:48)
[2019-11-25] MEDS: Escitalopram Oxalate 5 mg Tab PO SCH (09:21)
--- NOTE | 2019-11-25 15:19 | Progress Notes ---
DATE: 11/25/2019 PSYCHOLOGY PROGRESS NOTE SUBJECTIVE: The patient is seen and is interviewed. Case is discussed with staff. The patient presents as impatient and restless. The patient complained that she does not have anything to change into or any other clothes. The patient insists that she brought clothes with her. She continues to seem anxious and at times difficult to redirect and demanding. OBJECTIVE: Mood is anxious. Affect is animated and reactive. Attitude is superficially cooperative. The thought process shows to be focused on discharging and going home. The patient denied any hallucinations or delusions. She denies any suicidal ideation, plan or intention. Staff reports no behavioral issues and that the patient has been redirectable and compliant with her medications. ASSESSMENT: The patient's depression and anxiety persist. The patient has a history of dementia with depression and impulse control issues. PLAN: The patient is continued on her current medications. We provided remotivation for the patient to become compliant and stay compliant with all aspects of her care and treatment. We provided coping strategies for phase of life issues. We provided reality testing. Insight oriented therapy was provided to assist the patient in reducing her depression. We will follow up in 2-3 days to continue the present treatment if the patient is still admitted on the unit. We will reassess the patient's capacity to benefit from psychology services on the next visit. JOB# [id number] AYLIN
--- NOTE | 2019-11-25 15:32 | Progress Notes ---
DATE: SUBJECTIVE: The patient was resting in bed with breakfast tray in front of her. The patient ate some of the breakfast. The patient continued to be verbally responsive. The patient stated that she is not happy and wanted to go home. When asked where her home is the patient stated [place]. When asked what city is it close to the patient stated [place]. The patient was not able to say why she is here. The patient was not able to say where she is. The patient stated that she wants to go home. The patient reported that she slept okay. When encouraged the patient to finish her breakfast, the patient stated that she will; however, the patient did not eat any more during the interview. OBJECTIVE: The patient continued to be depressed, wanting to go home. The patient appeared to have poor memory, not able to give much information. The patient stated that she lives with her son; however, the patient was not able to say when was the last time she saw him. The staff reported that the patient has been cooperative. Has been eating and sleeping okay. The patient got agitated at times because of the roommate who made a lot of noises. ASSESSMENT: 1. Major depressive disorder. 2. Mood disorder, depressed, due to medical condition. 3. Alzheimer's dementia with depression. 4. Impulse control disorder, not otherwise specified. 5. Personality change due to medical condition. PLAN: We will continue the patient on current medications and monitor. Consider increasing the Lexapro to 10 mg if the patient continues to be withdrawn and not wanting to be up and participate in activities. [facility]# [id number]
[2019-11-26] MEDS: Levothyroxine 0.05 Mg Tab PO SCH (06:32)
[2019-11-26] MEDS: Pantoprazole 40 mg/Packet PO SCH (06:32)
[2019-11-26] MEDS: Vitamin D3 2,000 IU SGL PO SCH (10:00)
[2019-11-26] MEDS: Multivitamin w/ Minerals Tab PO SCH (10:00)
[2019-11-26] MEDS: Ferrous Sulfate 325 MG TAB PO SCH ×3 (10:00→20:31)
[2019-11-26] MEDS: Escitalopram Oxalate 5 mg Tab PO SCH (10:00)
--- NOTE | 2019-11-26 15:52 | Internal Medicine Prog Note ---
Internal Medicine Subjective - Subjective Service Date: 11/26/19 Patient seen and examined:: with staff Patient is:: awake, confused, other (very depressed mood.) Patient Complaints of:: other Per staff patient has:: no adverse event, tolerating meds Internal Medicine Objective - Physical Exam Vitals and I&O: Vital Signs Temp 97.8 F 11/26/19 15:11 Pulse 74 11/26/19 15:11 Resp 20 11/26/19 15:11 BP 128/76 11/26/19 15:11 Pulse Ox 95 11/26/19 15:11 Intake & Output 11/25/19 11/26/19 11/26/19 18:59 06:59 18:59 Intake Total 900 360 Balance 900 360 Intake: Oral 900 360 Other: # Voids 4 2 # Bowel Movements 1 1 Active Medications: Current Medications Acetaminophen (Tylenol) 650 mg PO Q4H PRN PRN Reason: Pain (Mild 1-3) Stop: 01/21/20 00:48 Allopurinol (Zyloprim) 200 mg PO DAILY [facility] Stop: 01/21/20 08:59 Last Admin: 11/26/19 10:00 Dose: 200 mg Amlodipine Besylate (Norvasc) 5 mg PO DAILY [facility] Stop: 01/21/20 08:59 Last Admin: 11/26/19 10:41 Dose: Not Given Clopidogrel Bisulfate (Plavix) 75 mg PO DAILY [facility] Stop: 01/21/20 08:59 Last Admin: 11/26/19 10:00 Dose: 75 mg Cyanocobalamin (Vitamin B12) 1,000 mcg PO DAILY [facility] Stop: 01/21/20 08:59 Last Admin: 11/26/19 10:00 Dose: 1,000 mcg Docusate Sodium (Colace) 100 mg PO BID [facility] Stop: 01/21/20 08:59 Last Admin: 11/26/19 10:00 Dose: 100 mg Donepezil HCl (Aricept) 10 mg PO [facility] Stop: 01/21/20 20:59 Last Admin: 11/25/19 20:48 Dose: 10 mg Escitalopram Oxalate (Lexapro) 10 mg PO DAILY [facility]; Protocol Stop: 01/26/20 08:59 Famotidine (Pepcid) 20 mg PO HS [facility] Stop: 01/21/20 20:59 Last Admin: 11/25/19 20:48 Dose: 20 mg Ferrous Sulfate (Iron) 325 mg PO TID [facility] Stop: 01/21/20 08:59 Last Admin: 11/26/19 14:00 Dose: 325 mg Gabapentin (Neurontin) 100 mg PO TID [facility] Stop: 01/21/20 08:59 Last Admin: 11/26/19 14:00 Dose: 100 mg Ibuprofen (Motrin) 400 mg PO Q6H PRN PRN Reason: moderate to severe pain (4-10) Stop: 01/21/20 00:30 Levothyroxine Sodium (Synthroid) 0.05 mg PO QDAC [facility] Stop: 01/21/20 07:29 Last Admin: 11/26/19 06:32 Dose: 0.05 mg Lorazepam (Ativan) 0.5 mg PO Q4H PRN; Protocol PRN Reason: Anxiety Stop: 01/20/20 22:45 Magnesium Hydroxide (Milk Of Magnesia) 30 ml PO DAILY PRN PRN Reason: Constipation Stop: 01/21/20 00:30 Memantine (Namenda) 10 mg PO BID [facility] Stop: 01/21/20 08:59 Last Admin: 11/26/19 10:00 Dose: 10 mg Nitrofurantoin Macrocrystals (Macrobid) 100 mg PO BID [facility]; Protocol Stop: 01/21/20 08:59 Last Admin: 11/26/19 10:00 Dose: 100 mg Nitroglycerin (Nitrostat) 0.4 mg SL Q5MIN PRN PRN Reason: CHEST PAIN X3 Stop: 01/21/20 00:30 Pantoprazole Sodium (Protonix) 40 mg PO QDAC [facility] Stop: 01/24/20 07:29 Last Admin: 11/26/19 06:32 Dose: 40 mg Vitamin D (Vitamin D3) 2,000 iu PO DAILY [facility] Stop: 01/21/20 08:59 Last Admin: 11/26/19 10:00 Dose: 2,000 iu Zolpidem Tartrate (Ambien) 5 mg PO HS PRN PRN Reason: Insomnia Stop: 01/20/20 22:45 Physical Exam: Patient is very sad and withdrawn, keeps asking when can she go home. General: alert, demented HEENT: NC/AT, PERRLA Neck: Supple Lungs: CTAB Cardiovascular: RRR Abdomen: soft, non-tender, non-distended Extremities: clear Neurological: no change Internal Medicine Assmt/Plan - Assessment Assessment: Psychosis. Major Depression disorder. History of Hypertension. History of Gouty Arthritis. History of Coronary artery disease. History of Hyperlipidemia. History of Iron deficiency anemia. History of Neuropathy. - Plan Plan: Psych management as per Psych. Monitor diet and nutritional support. Supportive care. Pain management. Monitor vitals and labs. Continue current treatment plan as ordered. Nutritional Asmnt/Malnutr-PDOC - Dietary Evaluation Malnutrition Findings (Please click <Entered> for more info): Nutritional Asmnt/Malnutrition Start: 11/25/19 10: 42 Text: Status: Complete Freq: Protocol: Document 11/25/19 10:42 MMJEWELL (Rec: 11/25/19 10:47 [email or web address] HARP- [id number]) Nutritional Asmnt/Malnutrition Patient General Information Nutritional Screening Moderate Risk Diagnosis Psychosis Pertinent Medical Hx/Surgical Hx CAD, HTN, hyperlipidemia, depression, psychosis, gouty arthritis Subjective Information Patient was admitted due to increased confusion and depression. Patient tolerating current diet order with inconsistent intake. Current Diet Order/ Nutrition Support mechanical soft chopped Patient / S.O Not Indicated Pertinent Medications vitamin B12, colace, pepcid, iron, synthroid, MOM, Protonix , Vitamin D3 Pertinent Labs 11/21 Na 135 Nutritional Hx/Data Height 1.6 m Height (Calculated Centimeters) 160.0 Current Weight (lbs) 69.853 kg Weight (Calculated Kilograms) 69.9 Weight (Calculated Grams) 93213.2 [place] Body Weight 115 % [place] Body Weight 134 Body Mass Index (BMI) 27.3 Recent Weight Change No Weight Status Overweight GI Symptoms GI Symptoms None Last BM 11/24 x 2 Difficult in: None Food Allergies No Cultural/Ethnic/[employer] Belief none indicated Usual diet at home unknown Skin Integrity/Comment: Bridget 17, intact, dryness Current %PO Fair (50-74%) Estimated Nutritional Goals BEE in Kcals: Adj wt of IBW Calories/Kcals/Kg Adj BW 56.7kg 25-30 kcal/kg Kcals Calculated ~4056-8610 kcal/day Protein: Adj wt of IBW Protein g/k-1.2 gm/kg Protein Calculated ~55-70 gm/day Fluid: ml ~1473-8059 ml/day (1 ml/kcal) Nutritional Problem 1. Problem Problem Inadequate oral intake related to Etiology possible poor appetite/ confusion aeb Signs/Symptoms: po intake 50-75% of meals. Intervention/Recommendation Comments 1. Continue current diet as tolerated by patient 2. Encourage oral intake of meals and provide snacks between meals. WIll honor food preferences. Re-evaluate for protein supplements at next visit. Expected Outcomes/Goals Expected Outcomes/Goals Oral intake >75% of meals, weight stable or trend toward IBW, nutrition related labs WNL F/U MR
--- NOTE | 2019-11-26 17:31 | Progress Notes ---
DATE: 11/26/2019 SUBJECTIVE: The patient was up in wheelchair in the activity room, asleep. The patient responded to physical and verbal stimuli. The patient appeared to be confused. The patient stated that she has not had her breakfast, the patient stated that she is hungry. (The staff reported that the patient ate quite well this morning.) The patient was confused and disoriented to time, place, and person. The patient admitted to feeling depressed and stated that she wanted to go home. Again, the patient was unable to say where home is. OBJECTIVE: The patient continued to appear to be depressed with blunted affect. The patient reported that she wanted to go home. The patient reported that she took her medications. The staff reported that the patient has been okay, not aggressive, redirectable and compliant with care and treatment. The staff reported that the patient has been eating and sleeping okay. ASSESSMENT: 1. Major depressive disorder. 2. Mood disorder, depressed due to medical condition. 3. Alzheimer's dementia with depressed mood. 4. Impulse control disorder, not otherwise specified. 5. Personality change due to medical condition. PLAN: We will increase the patient's Lexapro to 10 mg p.o. q.a.m. and monitor the patient's response to the medication. JOB# [id number] AYLIN
[2019-11-27] MEDS: Pantoprazole 40 mg/Packet PO SCH (06:50)
[2019-11-27] MEDS: Levothyroxine 0.05 Mg Tab PO SCH (06:50)
[2019-11-27] MEDS: Multivitamin w/ Minerals Tab PO SCH (08:36)
[2019-11-27] MEDS: Vitamin D3 2,000 IU SGL PO SCH (08:36)
[2019-11-27] MEDS: Ferrous Sulfate 325 MG TAB PO SCH ×3 (08:37→20:35)
--- NOTE | 2019-11-27 12:42 | Internal Medicine Prog Note ---
Internal Medicine Subjective - Subjective Service Date: 11/27/19 Patient seen and examined:: with staff, chart reviewed Patient is:: awake, confused, other (very depressed mood.) Patient Complaints of:: other Per staff patient has:: no adverse event, tolerating meds Internal Medicine Objective - Physical Exam Vitals and I&O: Vital Signs Temp 97.8 F 11/27/19 06:24 Pulse 73 11/27/19 08:37 Resp 20 11/27/19 06:24 BP 93/59 11/27/19 08:37 Pulse Ox 98 11/27/19 06:24 Intake & Output 11/26/19 11/27/19 11/27/19 18:59 06:59 18:59 Intake Total 850 240 Balance 850 240 Intake: Oral 850 240 Other: # Voids 3 2 # Bowel Movements 2 Active Medications: Current Medications Acetaminophen (Tylenol) 650 mg PO Q4H PRN PRN Reason: Pain (Mild 1-3) Stop: 01/21/20 00:48 Allopurinol (Zyloprim) 200 mg PO DAILY [facility] Stop: 01/21/20 08:59 Last Admin: 11/27/19 08:36 Dose: 200 mg Amlodipine Besylate (Norvasc) 5 mg PO DAILY [facility] Stop: 01/21/20 08:59 Last Admin: 11/27/19 08:37 Dose: Not Given Clopidogrel Bisulfate (Plavix) 75 mg PO DAILY [facility] Stop: 01/21/20 08:59 Last Admin: 11/27/19 08:37 Dose: 75 mg Cyanocobalamin (Vitamin B12) 1,000 mcg PO DAILY [facility] Stop: 01/21/20 08:59 Last Admin: 11/27/19 08:37 Dose: 1,000 mcg Docusate Sodium (Colace) 100 mg PO BID [facility] Stop: 01/21/20 08:59 Last Admin: 11/27/19 08:37 Dose: 100 mg Donepezil HCl (Aricept) 10 mg PO HS [facility] Stop: 01/21/20 20:59 Last Admin: 11/26/19 20:30 Dose: 10 mg Escitalopram Oxalate (Lexapro) 10 mg PO DAILY [facility]; Protocol Stop: 01/26/20 08:59 Last Admin: 11/27/19 08:36 Dose: 10 mg Famotidine (Pepcid) 20 mg PO HS [facility] Stop: 01/21/20 20:59 Last Admin: 11/26/19 20:30 Dose: 20 mg Ferrous Sulfate (Iron) 325 mg PO TID [facility] Stop: 01/21/20 08:59 Last Admin: 11/27/19 08:37 Dose: 325 mg Gabapentin (Neurontin) 100 mg PO TID [facility] Stop: 01/21/20 08:59 Last Admin: 11/27/19 08:36 Dose: 100 mg Ibuprofen (Motrin) 400 mg PO Q6H PRN PRN Reason: moderate to severe pain (4-10) Stop: 01/21/20 00:30 Levothyroxine Sodium (Synthroid) 0.05 mg PO QDAC [facility] Stop: 01/21/20 07:29 Last Admin: 11/27/19 06:50 Dose: 0.05 mg Lorazepam (Ativan) 0.5 mg PO Q4H PRN; Protocol PRN Reason: Anxiety Stop: 01/20/20 22:45 Magnesium Hydroxide (Milk Of Magnesia) 30 ml PO DAILY PRN PRN Reason: Constipation Stop: 01/21/20 00:30 Memantine (Namenda) 10 mg PO BID [facility] Stop: 01/21/20 08:59 Last Admin: 11/27/19 08:37 Dose: 10 mg Nitrofurantoin Macrocrystals (Macrobid) 100 mg PO BID [facility]; Protocol Stop: 01/21/20 08:59 Last Admin: 11/27/19 08:37 Dose: 100 mg Nitroglycerin (Nitrostat) 0.4 mg SL Q5MIN PRN PRN Reason: CHEST PAIN X3 Stop: 01/21/20 00:30 Pantoprazole Sodium (Protonix) 40 mg PO QDAC [facility] Stop: 01/24/20 07:29 Last Admin: 11/27/19 06:50 Dose: 40 mg Vitamin D (Vitamin D3) 2,000 iu PO DAILY [facility] Stop: 01/21/20 08:59 Last Admin: 11/27/19 08:36 Dose: 2,000 iu Zolpidem Tartrate (Ambien) 5 mg PO HS PRN PRN Reason: Insomnia Stop: 01/20/20 22:45 Physical Exam: Patient needs close monitoring, patient is very depressed and withdrawn. General: alert, demented HEENT: NC/AT, PERRLA Neck: Supple Lungs: CTAB Cardiovascular: RRR Abdomen: soft, non-tender, non-distended Extremities: clear Neurological: no change Internal Medicine Assmt/Plan - Assessment Assessment: Psychosis. Major Depression disorder. History of Hypertension. History of Gouty Arthritis. History of Coronary artery disease. History of Hyperlipidemia. History of Iron deficiency anemia. History of Neuropathy. - Plan Plan: Psych management as per Psych. Monitor diet and nutritional support. Supportive care. Pain management. Monitor vitals and labs. Continue current treatment plan as ordered. Nutritional Asmnt/Malnutr-PDOC - Dietary Evaluation Malnutrition Findings (Please click <Entered> for more info): Nutritional Asmnt/Malnutrition Start: 11/25/19 10: 42 Text: Status: Complete Freq: Protocol: Document 11/25/19 10:42 MMJEWELL (Rec: 11/25/19 10:47 MMULJOSE HARP- FNS1) Nutritional Asmnt/Malnutrition Patient General Information Nutritional Screening Moderate Risk Diagnosis Psychosis Pertinent Medical Hx/Surgical Hx CAD, HTN, hyperlipidemia, depression, psychosis, gouty arthritis Subjective Information Patient was admitted due to increased confusion and depression. Patient tolerating current diet order with inconsistent intake. Current Diet Order/ Nutrition Support mechanical soft chopped Patient / S.O Not Indicated Pertinent Medications vitamin B12, colace, pepcid, iron, synthroid, MOM, Protonix , Vitamin D3 Pertinent Labs 11/21 Na 135 Nutritional Hx/Data Height 1.6 m Height (Calculated Centimeters) 160.0 Current Weight (lbs) 69.853 kg Weight (Calculated Kilograms) 69.9 Weight (Calculated Grams) 85932.2 [place] Body Weight 115 % [place] Body Weight 134 Body Mass Index (BMI) 27.3 Recent Weight Change No Weight Status Overweight GI Symptoms GI Symptoms None Last BM 11/24 x 2 Difficult in: None Food Allergies No Cultural/Ethnic/Jeh[employer] Belief none indicated Usual diet at home unknown Skin Integrity/Comment: Bridget 17, intact, dryness Current %PO Fair (50-74%) Estimated Nutritional Goals BEE in Kcals: Adj wt of IBW Calories/Kcals/Kg Adj BW 56.7kg 25-30 kcal/kg Kcals Calculated ~8967-4555 kcal/day Protein: Adj wt of IBW Protein g/k-1.2 gm/kg Protein Calculated ~55-70 gm/day Fluid: ml ~5128-6479 ml/day (1 ml/kcal) Nutritional Problem 1. Problem Problem Inadequate oral intake related to Etiology possible poor appetite/ confusion aeb Signs/Symptoms: po intake 50-75% of meals. Intervention/Recommendation Comments 1. Continue current diet as tolerated by patient 2. Encourage oral intake of meals and provide snacks between meals. WIll honor food preferences. Re-evaluate for protein supplements at next visit. Expected Outcomes/Goals Expected Outcomes/Goals Oral intake >75% of meals, weight stable or trend toward IBW, nutrition related labs WNL F/U MR 11/28-
--- NOTE | 2019-11-27 20:12 | Progress Notes ---
DATE: 11/27/2019 PSYCHIATRIC PROGRESS NOTE SUBJECTIVE: Staff was spoken to. The patient is interviewed. Mood is noted to be irritable. Affect is constricted. Coping skills at this time are noted to be very poor. Insight and judgment are also noted to be impaired. The patient is isolative and withdrawn. The patient is very irritable and the patient is stating there is nothing wrong with her. She should be discharged. ASSESSMENT: The patient is still depressed and no suicidal ideation is noted today, but coping skills are noted to be extremely poor. PLAN: To continue the patient with the current medications. I encouraged the patient to verbalize the concerns rather than to act out. The patient is currently on Lexapro. Plan to continue the medication. JOB# [id number]
--- NOTE | 2019-11-27 21:44 | Progress Notes ---
DATE: 11/27/2019 PSYCHOLOGY PROGRESS NOTE SUBJECTIVE: The patient is seen up in her wheelchair in the activity room. The patient seems to be distracted and somewhat fatigued and somnolent. The patient was able to respond to verbal stimuli. The patient presents as confused and somewhat disoriented. The patient admits continuing to feel depressed. OBJECTIVE: Mood is depressed. Affect is constricted. Thought process is depressogenic as well as confused and singularly focused on discharge. The patient denied any hallucinations or delusions; however, the patient may be experiencing some delusions with respect to her placement. The patient believes she lives at home and not at a fpc facility. The patient has been compliant with her care and medications with less aggressive behavior. ASSESSMENT: The patient's depression persists; however, impulsivity is coming down and lessening. PLAN: We provided remotivation and positive reinforcement for the patient to stay compliant with her care and treatment. We provided coping strategies for phase of life issues. We provided a simple cognitive behavioral approach to assist the patient in reducing her depression. We will follow up in 2-3 days if the patient remains on the unit and is able to participate in psychology services. JOB# [id number] AYLIN
[2019-11-28] MEDS: Pantoprazole 40 mg/Packet PO SCH (06:39)
[2019-11-28] MEDS: Levothyroxine 0.05 Mg Tab PO SCH (06:39)
[2019-11-28] MEDS: Vitamin D3 2,000 IU SGL PO SCH (08:40)
[2019-11-28] MEDS: Ferrous Sulfate 325 MG TAB PO SCH ×3 (08:41→20:36)
[2019-11-28] MEDS: Multivitamin w/ Minerals Tab PO SCH (08:41)
--- NOTE | 2019-11-29 02:34 | Progress Notes ---
DATE: 11/28/2019 PSYCHIATRIC PROGRESS NOTE SUBJECTIVE: Staff was spoken to. The patient is interviewed. Mood is noted to be irritable. Affect is constricted. The patient's insight and judgment at this time are noted to be still impaired. Impulse control is noted to be limited. Coping skills are noted to be limited. The patient is still depressed and has been selectively compliant with the medication. The patient is on escitalopram 10 mg on a daily basis and has been able to take the medication. ASSESSMENT: The patient is still depressed. PLAN: To continue the patient with the current medications and followup. JOB# [id number]
[2019-11-29] MEDS: Levothyroxine 0.05 Mg Tab PO SCH (06:40)
[2019-11-29] MEDS: Pantoprazole 40 mg/Packet PO SCH (06:41)
[2019-11-29] MEDS: Vitamin D3 2,000 IU SGL PO SCH (08:54)
[2019-11-29] MEDS: Multivitamin w/ Minerals Tab PO SCH (08:55)
[2019-11-29] MEDS: Ferrous Sulfate 325 MG TAB PO SCH ×3 (08:55→20:52)
--- NOTE | 2019-11-29 13:30 | Internal Medicine Prog Note ---
Internal Medicine Subjective - Subjective Service Date: 11/29/19 Patient is:: awake, confused, other (very depressed mood.) Patient Complaints of:: other Per staff patient has:: no adverse event, tolerating meds Internal Medicine Objective - Physical Exam Vitals and I&O: Vital Signs Temp 97.9 F 11/29/19 05:50 Pulse 80 11/29/19 08:54 Resp 18 11/29/19 08:00 BP 103/60 11/29/19 08:54 Pulse Ox 96 11/29/19 05:50 Intake & Output 11/28/19 11/29/19 11/29/19 18:59 06:59 18:59 Intake Total 800 Balance 800 Intake: Oral 800 Other: # Voids 3 3 # Bowel Movements 2 0 Active Medications: Current Medications Acetaminophen (Tylenol) 650 mg PO Q4H PRN PRN Reason: Pain (Mild 1-3) Stop: 01/21/20 00:48 Allopurinol (Zyloprim) 200 mg PO [facility]ILY [facility] Stop: 01/21/20 08:59 Last Admin: 11/29/19 08:53 Dose: 200 mg Amlodipine Besylate (Norvasc) 5 mg PO DAILY [facility] Stop: 01/21/20 08:59 Last Admin: 11/29/19 08:54 Dose: Not Given Clopidogrel Bisulfate (Plavix) 75 mg PO DAILY [facility] Stop: 01/21/20 08:59 Last Admin: 11/29/19 08:54 Dose: 75 mg Cyanocobalamin (Vitamin B12) 1,000 mcg PO DAILY [facility] Stop: 01/21/20 08:59 Last Admin: 11/29/19 08:55 Dose: 1,000 mcg Docusate Sodium (Colace) 100 mg PO BID [facility] Stop: 01/21/20 08:59 Last Admin: 11/29/19 08:55 Dose: 100 mg Donepezil HCl (Aricept) 10 mg PO [facility] Stop: 01/21/20 20:59 Last Admin: 11/28/19 20:36 Dose: 10 mg Escitalopram Oxalate (Lexapro) 10 mg PO DAILY [facility]; Protocol Stop: 01/26/20 08:59 Last Admin: 11/29/19 08:55 Dose: 10 mg Famotidine (Pepcid) 20 mg PO HS [facility] Stop: 01/21/20 20:59 Last Admin: 11/28/19 20:36 Dose: 20 mg Ferrous Sulfate (Iron) 325 mg PO TID [facility] Stop: 01/21/20 08:59 Last Admin: 11/29/19 08:55 Dose: 325 mg Gabapentin (Neurontin) 100 mg PO TID [facility] Stop: 01/21/20 08:59 Last Admin: 11/29/19 08:55 Dose: 100 mg Ibuprofen (Motrin) 400 mg PO Q6H PRN PRN Reason: moderate to severe pain (4-10) Stop: 01/21/20 00:30 Levothyroxine Sodium (Synthroid) 0.05 mg PO QDAC [facility] Stop: 01/21/20 07:29 Last Admin: 11/29/19 06:40 Dose: 0.05 mg Lorazepam (Ativan) 0.5 mg PO Q4H PRN; Protocol PRN Reason: Anxiety Stop: 01/20/20 22:45 Last Admin: 11/28/19 14:42 Dose: 0.5 mg Magnesium Hydroxide (Milk Of Magnesia) 30 ml PO DAILY PRN PRN Reason: Constipation Stop: 01/21/20 00:30 Memantine (Namenda) 10 mg PO BID [facility] Stop: 01/21/20 08:59 Last Admin: 11/29/19 08:55 Dose: 10 mg Nitrofurantoin Macrocrystals (Macrobid) 100 mg PO BID [facility]; Protocol Stop: 01/21/20 08:59 Last Admin: 11/29/19 08:55 Dose: 100 mg Nitroglycerin (Nitrostat) 0.4 mg SL Q5MIN PRN PRN Reason: CHEST PAIN X3 Stop: 01/21/20 00:30 Pantoprazole Sodium (Protonix) 40 mg PO QDAC [facility] Stop: 01/24/20 07:29 Last Admin: 11/29/19 06:41 Dose: 40 mg Vitamin D (Vitamin D3) 2,000 iu PO DAILY [facility] Stop: 01/21/20 08:59 Last Admin: 11/29/19 08:54 Dose: 2,000 iu Zolpidem Tartrate (Ambien) 5 mg PO HS PRN PRN Reason: Insomnia Stop: 01/20/20 22:45 Last Admin: 11/28/19 20:36 Dose: 5 mg General: alert, demented HEENT: NC/AT, PERRLA Neck: Supple Lungs: CTAB Cardiovascular: RRR Abdomen: soft, non-tender, non-distended Extremities: clear Neurological: no change Internal Medicine Assmt/Plan - Assessment Assessment: Psychosis. Major Depression disorder. History of Hypertension. History of Gouty Arthritis. History of Coronary artery disease. History of Hyperlipidemia. History of Iron deficiency anemia. History of Neuropathy. - Plan Plan: Psych consult. Psych management as per Psych. Monitor diet and nutritional support. Supportive care. Pain management. Monitor vitals and labs. Continue current treatment plan as ordered. Nutritional Asmnt/Malnutr-PDOC - Dietary Evaluation Malnutrition Findings (Please click <Entered> for more info): Nutritional Asmnt/Malnutrition Start: 11/25/19 10: 42 Text: Status: Complete Freq: Protocol: Document 11/25/19 10:42 MMULHERN (Rec: 11/25/19 10:47 MMULHERN KATIUSKA- FNS1) Nutritional Asmnt/Malnutrition Patient General Information Nutritional Screening Moderate Risk Diagnosis Psychosis Pertinent Medical Hx/Surgical Hx CAD, HTN, hyperlipidemia, depression, psychosis, gouty arthritis Subjective Information Patient was admitted due to increased confusion and depression. Patient tolerating current diet order with inconsistent intake. Current Diet Order/ Nutrition Support mechanical soft chopped Patient / S.O Not Indicated Pertinent Medications vitamin B12, colace, pepcid, iron, synthroid, MOM, Protonix , Vitamin D3 Pertinent Labs 11/21 Na 135 Nutritional Hx/Data Height 5 ft 3 in Height (Calculated Centimeters) 160.0 Current Weight (lbs) 154 lb Weight (Calculated Kilograms) 69.9 Weight (Calculated Grams) 93660.2 [place] Body Weight 115 % [place] Body Weight 134 Body Mass Index (BMI) 27.3 Recent Weight Change No Weight Status Overweight GI Symptoms GI Symptoms None Last BM 11/24 x 2 Difficult in: None Food Allergies No Cultural/Ethnic/Jainism Belief none indicated Usual diet at home unknown Skin Integrity/Comment: Bridget 17, intact, dryness Current %PO Fair (50-74%) Estimated Nutritional Goals BEE in Kcals: Adj wt of IBW Calories/Kcals/Kg Adj BW 56.7kg 25-30 kcal/kg Kcals Calculated ~2301-0905 kcal/day Protein: Adj wt of IBW Protein g/k-1.2 gm/kg Protein Calculated ~55-70 gm/day Fluid: ml ~1233-2263 ml/day (1 ml/kcal) Nutritional Problem 1. Problem Problem Inadequate oral intake related to Etiology possible poor appetite/ confusion aeb Signs/Symptoms: po intake 50-75% of meals. Intervention/Recommendation Comments 1. Continue current diet as tolerated by patient 2. Encourage oral intake of meals and provide snacks between meals. WIll honor food preferences. Re-evaluate for protein supplements at next visit. Expected Outcomes/Goals Expected Outcomes/Goals Oral intake >75% of meals, weight stable or trend toward IBW, nutrition related labs WNL F/U MR
--- NOTE | 2019-11-30 01:36 | Progress Notes ---
DATE: 11/29/2019 PSYCHIATRIC PROGRESS NOTE SUBJECTIVE: Staff was spoken to. The patient is interviewed. Mood is noted to be irritable. Affect is constricted. Insight and judgment are noted to be still impaired. Impulse control seems to be limited. The patient constantly whines and states that she is no reason for her to be in here. She wants to be out of here. The patient has been more somatically preoccupied. No side effects to the medications are noted at this time. ASSESSMENT: The patient is still depressed. PLAN: To continue the patient with the Lexapro and followup. JOB# [id number]
[2019-11-30] MEDS: Levothyroxine 0.05 Mg Tab PO SCH (06:33)
[2019-11-30] MEDS: Pantoprazole 40 mg/Packet PO SCH (06:34)
[2019-11-30] MEDS: Multivitamin w/ Minerals Tab PO SCH (08:45)
[2019-11-30] MEDS: Ferrous Sulfate 325 MG TAB PO SCH ×3 (08:45→20:27)
[2019-11-30] MEDS: Vitamin D3 2,000 IU SGL PO SCH (08:46)
--- NOTE | 2019-11-30 18:30 | Internal Medicine Prog Note ---
Internal Medicine Subjective - Subjective Service Date: 11/30/19 Patient is:: awake, confused, other (very depressed mood.) Patient Complaints of:: other Per staff patient has:: no adverse event, tolerating meds Internal Medicine Objective - Physical Exam Vitals and I&O: Vital Signs Temp 97.9 F 11/30/19 15:00 Pulse 86 11/30/19 15:00 Resp 20 11/30/19 15:00 BP 128/57 11/30/19 15:00 Pulse Ox 96 11/30/19 15:00 Intake & Output 11/29/19 11/30/19 11/30/19 18:59 06:59 18:59 Intake Total 240 Balance 240 Intake: Oral 240 Other: # Voids 2 # Bowel Movements 0 Active Medications: Current Medications Acetaminophen (Tylenol) 650 mg PO Q4H PRN PRN Reason: Pain (Mild 1-3) Stop: 01/21/20 00:48 Allopurinol (Zyloprim) 200 mg PO DAILY [facility] Stop: 01/21/20 08:59 Last Admin: 11/30/19 08:46 Dose: 200 mg Amlodipine Besylate (Norvasc) 5 mg PO DAILY [facility] Stop: 01/21/20 08:59 Last Admin: 11/30/19 08:47 Dose: 5 mg Clopidogrel Bisulfate (Plavix) 75 mg PO DAILY [facility] Stop: 01/21/20 08:59 Last Admin: 11/30/19 08:45 Dose: 75 mg Cyanocobalamin (Vitamin B12) 1,000 mcg PO DAILY [facility] Stop: 01/21/20 08:59 Last Admin: 11/30/19 08:45 Dose: 1,000 mcg Docusate Sodium (Colace) 100 mg PO BID [facility] Stop: 01/21/20 08:59 Last Admin: 11/30/19 16:17 Dose: 100 mg Donepezil HCl (Aricept) 10 mg PO HS [facility] Stop: 01/21/20 20:59 Last Admin: 11/29/19 20:51 Dose: 10 mg Escitalopram Oxalate (Lexapro) 10 mg PO DAILY [facility]; Protocol Stop: 01/26/20 08:59 Last Admin: 11/30/19 08:48 Dose: 10 mg Famotidine (Pepcid) 20 mg PO HS [facility] Stop: 01/21/20 20:59 Last Admin: 11/29/19 20:52 Dose: 20 mg Ferrous Sulfate (Iron) 325 mg PO TID [facility] Stop: 01/21/20 08:59 Last Admin: 11/30/19 14:17 Dose: 325 mg Gabapentin (Neurontin) 100 mg PO TID [facility] Stop: 01/21/20 08:59 Last Admin: 11/30/19 14:17 Dose: 100 mg Ibuprofen (Motrin) 400 mg PO Q6H PRN PRN Reason: moderate to severe pain (4-10) Stop: 01/21/20 00:30 Levothyroxine Sodium (Synthroid) 0.05 mg PO QDAC [facility] Stop: 01/21/20 07:29 Last Admin: 11/30/19 06:33 Dose: 0.05 mg Lorazepam (Ativan) 0.5 mg PO Q4H PRN; Protocol PRN Reason: Anxiety Stop: 01/20/20 22:45 Last Admin: 11/28/19 14:42 Dose: 0.5 mg Magnesium Hydroxide (Milk Of Magnesia) 30 ml PO DAILY PRN PRN Reason: Constipation Stop: 01/21/20 00:30 Memantine (Namenda) 10 mg PO BID [facility] Stop: 01/21/20 08:59 Last Admin: 11/30/19 16:17 Dose: 10 mg Nitroglycerin (Nitrostat) 0.4 mg SL Q5MIN PRN PRN Reason: CHEST PAIN X3 Stop: 01/21/20 00:30 Pantoprazole Sodium (Protonix) 40 mg PO QDAC [facility] Stop: 01/24/20 07:29 Last Admin: 11/30/19 06:34 Dose: 40 mg Vitamin D (Vitamin D3) 2,000 iu PO DAILY [facility] Stop: 01/21/20 08:59 Last Admin: 11/30/19 08:46 Dose: 2,000 iu Zolpidem Tartrate (Ambien) 5 mg PO HS PRN PRN Reason: Insomnia Stop: 01/20/20 22:45 Last Admin: 11/29/19 20:52 Dose: 5 mg General: alert, demented HEENT: NC/AT, PERRLA Neck: Supple Lungs: CTAB Cardiovascular: RRR Abdomen: soft, non-tender, non-distended Extremities: clear Neurological: no change Internal Medicine Assmt/Plan - Assessment Assessment: Psychosis. Major Depression disorder. History of Hypertension. History of Gouty Arthritis. History of Coronary artery disease. History of Hyperlipidemia. History of Iron deficiency anemia. History of Neuropathy. - Plan Plan: Psych consult. Psych management as per Psych. Monitor diet and nutritional support. Supportive care. Pain management. Monitor vitals and labs. Continue current treatment plan as ordered. Nutritional Asmnt/Malnutr-PDOC - Dietary Evaluation Malnutrition Findings (Please click <Entered> for more info): Nutritional Asmnt/Malnutrition Start: 11/25/19 10: 42 Text: Status: Complete Freq: Protocol: Document 11/25/19 10:42 MMJEWELL (Rec: 11/25/19 10:47 MMULHERN KATIUSKA- FNS1) Nutritional Asmnt/Malnutrition Patient General Information Nutritional Screening Moderate Risk Diagnosis Psychosis Pertinent Medical Hx/Surgical Hx CAD, HTN, hyperlipidemia, depression, psychosis, gouty arthritis Subjective Information Patient was admitted due to increased confusion and depression. Patient tolerating current diet order with inconsistent intake. Current Diet Order/ Nutrition Support mechanical soft chopped Patient / S.O Not Indicated Pertinent Medications vitamin B12, colace, pepcid, iron, synthroid, MOM, Protonix , Vitamin D3 Pertinent Labs 11/21 Na 135 Nutritional Hx/Data Height 5 ft 3 in Height (Calculated Centimeters) 160.0 Current Weight (lbs) 154 lb Weight (Calculated Kilograms) 69.9 Weight (Calculated Grams) 98316.2 [place] Body Weight 115 % [place] Body Weight 134 Body Mass Index (BMI) 27.3 Recent Weight Change No Weight Status Overweight GI Symptoms GI Symptoms None Last BM 11/24 x 2 Difficult in: None Food Allergies No Cultural/Ethnic/Buddhism Belief none indicated Usual diet at home unknown Skin Integrity/Comment: Bridget 17, intact, dryness Current %PO Fair (50-74%) Estimated Nutritional Goals BEE in Kcals: Adj wt of IBW Calories/Kcals/Kg Adj BW 56.7kg 25-30 kcal/kg Kcals Calculated ~7647-6965 kcal/day Protein: Adj wt of IBW Protein g/k-1.2 gm/kg Protein Calculated ~55-70 gm/day Fluid: ml ~9754-0224 ml/day (1 ml/kcal) Nutritional Problem 1. Problem Problem Inadequate oral intake related to Etiology possible poor appetite/ confusion aeb Signs/Symptoms: po intake 50-75% of meals. Intervention/Recommendation Comments 1. Continue current diet as tolerated by patient 2. Encourage oral intake of meals and provide snacks between meals. WIll honor food preferences. Re-evaluate for protein supplements at next visit. Expected Outcomes/Goals Expected Outcomes/Goals Oral intake >75% of meals, weight stable or trend toward IBW, nutrition related labs WNL F/U MR 11/28-
--- NOTE | 2019-11-30 18:40 | Progress Notes ---
DATE: 11/29/2019 PSYCHOLOGY PROGRESS NOTE SUBJECTIVE: The patient is seen and is interviewed. Case is discussed with staff. The patient presents as easily irritated on this visit. Staff reports the patient's impulse control is poor. The patient is whining to this provider during this visit. The patient perseverated on the thought that she does not need to be hospitalized and that she needs to be discharged immediately. The patient seems to be focused on other medical issues. This is deferred to the medical doctor and nursing staff is informed. OBJECTIVE: Mood is irritable. Affect is constricted. Thought process shows to be confused with perseveration on discharge and some preoccupation with somatic concerns. The patient denied any hallucinations or delusions; however, delusional content is present. The patient's behavior is compliant with medications. ASSESSMENT: The patient continues to be depressed. PLAN: We will continue to provide cognitive behavioral therapy if the patient is able to participate in this type of intervention and skills based treatment. The patient is continued on Lexapro according to the attending psychiatrist. We will continue to provide coping strategies for phase of life issues along with reflective listening and insight oriented therapy to assist the patient in being able to increase her coping skills and coping mechanisms. We will add cognitive refocusing for the patient to be less preoccupied with somatic concerns. We will continue to address the patient's need for treatment and the reasons for hospitalization and provide remotivation for the patient to become compliant and stay compliant with her care and treatment. We will follow up in 2 days to continue the present treatment if the patient remains admitted on the unit. JOB# [id number] AYLIN
--- NOTE | 2019-11-30 21:19 | Progress Notes ---
DATE: 11/30/2019 PSYCHIATRIC PROGRESS NOTE SUBJECTIVE: Staff was spoken to. The patient is interviewed. Mood is noted to be irritable. Affect is constricted. The patient is isolative and withdrawn. The patient is stating that there is nothing wrong with her. She needs to be out of here. Sleep is noted to be improving. Appetite is noted to be fair at this time. No major side effects to the medications are noted. However, the patient has been getting easily frustrated. PLAN: To continue the patient with the current medications and encouraged the patient to verbalize the concerns rather than to act out. The patient is currently on escitalopram 10 mg. We would like to continue the medication and follow the patient with the supportive therapy. JOB# [id number]
[2019-12-01] MEDS: Levothyroxine 0.05 Mg Tab PO SCH (06:30)
[2019-12-01] MEDS: Pantoprazole 40 mg/Packet PO SCH (06:31)
[2019-12-01] MEDS: Vitamin D3 2,000 IU SGL PO SCH (09:47)
[2019-12-01] MEDS: Multivitamin w/ Minerals Tab PO SCH (09:48)
[2019-12-01] MEDS: Ferrous Sulfate 325 MG TAB PO SCH ×3 (09:48→20:50)
--- NOTE | 2019-12-01 11:30 | Internal Medicine Prog Note ---
Internal Medicine Subjective - Subjective Service Date: 12/01/19 Patient seen and examined:: with staff Patient is:: awake, agitated, confused, other (very depressed mood.) Patient Complaints of:: other Per staff patient has:: no adverse event, tolerating meds Internal Medicine Objective - Physical Exam Vitals and I&O: Vital Signs Temp 97.6 F 12/01/19 06:10 Pulse 95 12/01/19 09:47 Resp 20 12/01/19 06:10 BP 116/59 12/01/19 09:47 Pulse Ox 97 12/01/19 06:10 Intake & Output 11/30/19 12/01/19 12/01/19 18:59 06:59 18:59 Intake Total 240 Output Total 1 Balance 239 Intake: Oral 240 Output: Urine/Stool Mix 1 Other: # Voids 1 # Bowel Movements 1 Active Medications: Current Medications Acetaminophen (Tylenol) 650 mg PO Q4H PRN PRN Reason: Pain (Mild 1-3) Stop: 01/21/20 00:48 Allopurinol (Zyloprim) 200 mg PO DAILY [facility] Stop: 01/21/20 08:59 Last Admin: 12/01/19 09:47 Dose: 200 mg Amlodipine Besylate (Norvasc) 5 mg PO DAILY [facility] Stop: 01/21/20 08:59 Last Admin: 12/01/19 09:47 Dose: 5 mg Calamine/Phenol (Calmoseptine) 1 appl TP QID PRN PRN Reason: Skin Irritation Stop: 01/30/20 09:25 Clopidogrel Bisulfate (Plavix) 75 mg PO DAILY [facility] Stop: 01/21/20 08:59 Last Admin: 12/01/19 09:47 Dose: 75 mg Cyanocobalamin (Vitamin B12) 1,000 mcg PO DAILY [facility] Stop: 01/21/20 08:59 Last Admin: 12/01/19 09:47 Dose: 1,000 mcg Docusate Sodium (Colace) 100 mg PO BID [facility] Stop: 01/21/20 08:59 Last Admin: 12/01/19 09:47 Dose: Not Given Donepezil HCl (Aricept) 10 mg PO HS [facility] Stop: 01/21/20 20:59 Last Admin: 11/30/19 20:26 Dose: 10 mg Escitalopram Oxalate (Lexapro) 10 mg PO DAILY [facility]; Protocol Stop: 01/26/20 08:59 Last Admin: 12/01/19 09:48 Dose: 10 mg Famotidine (Pepcid) 20 mg PO HS [facility] Stop: 01/21/20 20:59 Last Admin: 11/30/19 20:26 Dose: 20 mg Ferrous Sulfate (Iron) 325 mg PO TID [facility] Stop: 01/21/20 08:59 Last Admin: 12/01/19 09:48 Dose: 325 mg Gabapentin (Neurontin) 100 mg PO TID [facility] Stop: 01/21/20 08:59 Last Admin: 12/01/19 09:48 Dose: 100 mg Ibuprofen (Motrin) 400 mg PO Q6H PRN PRN Reason: moderate to severe pain (4-10) Stop: 01/21/20 00:30 Levothyroxine Sodium (Synthroid) 0.05 mg PO QDAC [facility] Stop: 01/21/20 07:29 Last Admin: 12/01/19 06:30 Dose: 0.05 mg Lorazepam (Ativan) 0.5 mg PO Q4H PRN; Protocol PRN Reason: Anxiety Stop: 01/20/20 22:45 Last Admin: 11/28/19 14:42 Dose: 0.5 mg Magnesium Hydroxide (Milk Of Magnesia) 30 ml PO DAILY PRN PRN Reason: Constipation Stop: 01/21/20 00:30 Memantine (Namenda) 10 mg PO BID [facility] Stop: 01/21/20 08:59 Last Admin: 12/01/19 09:48 Dose: 10 mg Nitroglycerin (Nitrostat) 0.4 mg SL Q5MIN PRN PRN Reason: CHEST PAIN X3 Stop: 01/21/20 00:30 Pantoprazole Sodium (Protonix) 40 mg PO QDAC [facility] Stop: 01/24/20 07:29 Last Admin: 12/01/19 06:31 Dose: 40 mg Vitamin D (Vitamin D3) 2,000 iu PO DAILY [facility] Stop: 01/21/20 08:59 Last Admin: 12/01/19 09:47 Dose: 2,000 iu Zolpidem Tartrate (Ambien) 5 mg PO HS PRN PRN Reason: Insomnia Stop: 01/20/20 22:45 Last Admin: 11/30/19 20:27 Dose: 5 mg Physical Exam: Patient needs close monitoring, patient is easily irritated, stating she wants to go home, has difficulty sleeping. General: alert, demented HEENT: NC/AT, PERRLA Neck: Supple Lungs: CTAB Cardiovascular: RRR Abdomen: soft, non-tender, non-distended Extremities: clear Neurological: no change Internal Medicine Assmt/Plan - Assessment Assessment: Psychosis. Major Depression disorder. History of Hypertension. History of Gouty Arthritis. History of Coronary artery disease. History of Hyperlipidemia. History of Iron deficiency anemia. History of Neuropathy. - Plan Plan: Psych management as per Psych. Monitor diet and nutritional support. Supportive care. Pain management. Monitor vitals and labs. Continue current treatment plan as ordered. Nutritional Asmnt/Malnutr-PDOC - Dietary Evaluation Malnutrition Findings (Please click <Entered> for more info): Nutritional Asmnt/Malnutrition Start: 11/25/19 10: 42 Text: Status: Complete Freq: Protocol: Document 11/25/19 10:42 JANENE (Rec: 11/25/19 10:47 [email or web address]) Nutritional Asmnt/Malnutrition Patient General Information Nutritional Screening Moderate Risk Diagnosis Psychosis Pertinent Medical Hx/Surgical Hx CAD, HTN, hyperlipidemia, depression, psychosis, gouty arthritis Subjective Information Patient was admitted due to increased confusion and depression. Patient tolerating current diet order with inconsistent intake. Current Diet Order/ Nutrition Support mechanical soft chopped Patient / S.O Not Indicated Pertinent Medications vitamin B12, colace, pepcid, iron, synthroid, MOM, Protonix , Vitamin D3 Pertinent Labs 11/21 Na 135 Nutritional Hx/Data Height 1.6 m Height (Calculated Centimeters) 160.0 Current Weight (lbs) 69.853 kg Weight (Calculated Kilograms) 69.9 Weight (Calculated Grams) 70819.2 [place] Body Weight 115 % [place] Body Weight 134 Body Mass Index (BMI) 27.3 Recent Weight Change No Weight Status Overweight GI Symptoms GI Symptoms None Last BM 11/24 x 2 Difficult in: None Food Allergies No Cultural/Ethnic/Caodaism Belief none indicated Usual diet at home unknown Skin Integrity/Comment: Bridget 17, intact, dryness Current %PO Fair (50-74%) Estimated Nutritional Goals BEE in Kcals: Adj wt of IBW Calories/Kcals/Kg Adj BW 56.7kg 25-30 kcal/kg Kcals Calculated ~0015-0915 kcal/day Protein: Adj wt of IBW Protein g/k-1.2 gm/kg Protein Calculated ~55-70 gm/day Fluid: ml ~3188-7880 ml/day (1 ml/kcal) Nutritional Problem 1. Problem Problem Inadequate oral intake related to Etiology possible poor appetite/ confusion aeb Signs/Symptoms: po intake 50-75% of meals. Intervention/Recommendation Comments 1. Continue current diet as tolerated by patient 2. Encourage oral intake of meals and provide snacks between meals. WIll honor food preferences. Re-evaluate for protein supplements at next visit. Expected Outcomes/Goals Expected Outcomes/Goals Oral intake >75% of meals, weight stable or trend toward IBW, nutrition related labs WNL F/U MR
[2019-12-01] MEDS: Menthol/Zinc Oxide Oint 113gm Tube TP PRN (20:53)
[2019-12-01] MEDS: Menthol/Zinc Oxide Oint 113gm Tube TP SCH (21:21)
--- NOTE | 2019-12-01 21:33 | Progress Notes ---
DATE: 12/01/2019 PSYCHIATRIC PROGRESS NOTE SUBJECTIVE: Staff was spoken to. The patient is interviewed. Mood is noted to be irritable. Affect is constricted. The patient is still very depressed. Coping skills are noted to be poor. The patient is isolative and withdrawn. The patient gets easily irritable. The patient needs to be redirected. No side effects to the medications are noted. ASSESSMENT: The patient is still depressed. PLAN: To continue the patient with the supportive therapy, encouraged the patient to verbalize the concerns rather than to act out. JOB# [id number]
[2019-12-02] MEDS: Menthol/Zinc Oxide Oint 113gm Tube TP PRN (06:12)
[2019-12-02] MEDS: Pantoprazole 40 mg/Packet PO SCH (06:42)
[2019-12-02] MEDS: Levothyroxine 0.05 Mg Tab PO SCH (06:42)
--- NOTE | 2019-12-02 08:41 | Progress Notes ---
DATE: 12/02/2019 SUBJECTIVE: The patient was seen in her room. The patient is asleep, but easily arousable. The patient is very confused, easily gets frustrated, easily gets agitated, poor impulse control. Otherwise, the patient is in no acute distress. OBJECTIVE: VITAL SIGNS: Temperature 98.8, heart rate 72, blood pressure 123/65, respirations 18, 97% on room air. HEENT: Head is atraumatic and normocephalic. Eyes: Bilateral conjunctivae are clear. Bilateral pupils are equally round and reactive. NECK: Supple. No JVD. CARDIOVASCULAR: S1 and S2, without murmur. PULMONARY: Clear to auscultation. GASTROINTESTINAL: Soft and nontender without guarding. Positive bowel sounds. MUSCULOSKELETAL: No clubbing. No cyanosis noted. ASSESSMENT: 1. Dementia. 2. Hypertension. 3. Arthritis. 4. Hyperlipidemia. 5. Coronary artery disease. PLAN: We will continue to keep the patient to inpatient Psychiatric Unit. We will follow up with a psychiatrist to monitor the patient's condition and behavior. We will put the patient on fall precautions. Treatment plans were discussed with the patient's nurse. Treatment plans were discussed with Dr. Olmstead. JOB# [id number]
[2019-12-02] MEDS: Vitamin D3 2,000 IU SGL PO SCH (09:04)
[2019-12-02] MEDS: Ferrous Sulfate 325 MG TAB PO SCH ×3 (09:06→21:30)
[2019-12-02] MEDS: Multivitamin w/ Minerals Tab PO SCH (09:06)
[2019-12-02] MEDS: Menthol/Zinc Oxide Oint 113gm Tube TP SCH ×2 (09:23→17:32)
--- NOTE | 2019-12-02 12:52 | Internal Medicine Prog Note ---
Internal Medicine Subjective - Subjective Service Date: 12/02/19 Patient seen and examined:: with staff Patient is:: awake, agitated, confused, other (very depressed mood.) Patient Complaints of:: other Per staff patient has:: no adverse event, tolerating meds Internal Medicine Objective - Physical Exam Vitals and I&O: Vital Signs Temp 97.8 F 12/02/19 06:34 Pulse 72 12/02/19 09:05 Resp 18 12/02/19 06:34 BP 123/65 12/02/19 09:05 Pulse Ox 92 12/02/19 06:34 Intake & Output 12/01/19 12/02/19 12/02/19 18:59 06:59 18:59 Intake Total 180 Balance 180 Intake: Oral 180 Other: # Voids 1 # Bowel Movements 0 Active Medications: Current Medications Acetaminophen (Tylenol) 650 mg PO Q4H PRN PRN Reason: Pain (Mild 1-3) Stop: 01/21/20 00:48 Allopurinol (Zyloprim) 200 mg PO DAILY [facility] Stop: 01/21/20 08:59 Last Admin: 12/02/19 09:04 Dose: 200 mg Amlodipine Besylate (Norvasc) 5 mg PO DAILY [facility] Stop: 01/21/20 08:59 Last Admin: 12/02/19 09:05 Dose: 5 mg Calamine/Phenol (Calmoseptine) 1 appl TP QID PRN PRN Reason: Skin Irritation Stop: 01/30/20 09:25 Last Admin: 12/02/19 06:12 Dose: 1 appl Calamine/Phenol (Calmoseptine) 1 appl TP BID [facility] Stop: 01/30/20 20:59 Last Admin: 12/02/19 09:23 Dose: 1 appl Clopidogrel Bisulfate (Plavix) 75 mg PO DAILY [facility] Stop: 01/21/20 08:59 Last Admin: 12/02/19 09:06 Dose: 75 mg Cyanocobalamin (Vitamin B12) 1,000 mcg PO DAILY [facility] Stop: 01/21/20 08:59 Last Admin: 12/02/19 09:06 Dose: 1,000 mcg Docusate Sodium (Colace) 100 mg PO BID [facility] Stop: 01/21/20 08:59 Last Admin: 12/02/19 09:04 Dose: 100 mg Donepezil HCl (Aricept) 10 mg PO HS [facility] Stop: 01/21/20 20:59 Last Admin: 12/01/19 20:50 Dose: 10 mg Escitalopram Oxalate (Lexapro) 10 mg PO DAILY [facility]; Protocol Stop: 01/26/20 08:59 Last Admin: 12/02/19 09:05 Dose: 10 mg Famotidine (Pepcid) 20 mg PO HS [facility] Stop: 01/21/20 20:59 Last Admin: 12/01/19 20:50 Dose: 20 mg Ferrous Sulfate (Iron) 325 mg PO TID [facility] Stop: 01/21/20 08:59 Last Admin: 12/02/19 09:06 Dose: 325 mg Gabapentin (Neurontin) 100 mg PO TID [facility] Stop: 01/21/20 08:59 Last Admin: 12/02/19 09:06 Dose: 100 mg Ibuprofen (Motrin) 400 mg PO Q6H PRN PRN Reason: moderate to severe pain (4-10) Stop: 01/21/20 00:30 Last Admin: 12/01/19 22:02 Dose: 400 mg Levothyroxine Sodium (Synthroid) 0.05 mg PO QDAC [facility] Stop: 01/21/20 07:29 Last Admin: 12/02/19 06:42 Dose: 0.05 mg Lorazepam (Ativan) 0.5 mg PO Q4H PRN; Protocol PRN Reason: Anxiety Stop: 01/20/20 22:45 Last Admin: 11/28/19 14:42 Dose: 0.5 mg Magnesium Hydroxide (Milk Of Magnesia) 30 ml PO DAILY PRN PRN Reason: Constipation Stop: 01/21/20 00:30 Memantine (Namenda) 10 mg PO BID [facility] Stop: 01/21/20 08:59 Last Admin: 12/02/19 09:05 Dose: 10 mg Nitroglycerin (Nitrostat) 0.4 mg SL Q5MIN PRN PRN Reason: CHEST PAIN X3 Stop: 01/21/20 00:30 Pantoprazole Sodium (Protonix) 40 mg PO QDAC [facility] Stop: 01/24/20 07:29 Last Admin: 12/02/19 06:42 Dose: 40 mg Vitamin D (Vitamin D3) 2,000 iu PO DAILY [facility] Stop: 01/21/20 08:59 Last Admin: 12/02/19 09:04 Dose: 2,000 iu Zolpidem Tartrate (Ambien) 5 mg PO HS PRN PRN Reason: Insomnia Stop: 01/20/20 22:45 Last Admin: 12/01/19 20:50 Dose: 5 mg Physical Exam: Patient needs close monitoring, patient is still very confused, agitated and remains weak. General: alert, demented HEENT: NC/AT, PERRLA Neck: Supple Lungs: CTAB Cardiovascular: RRR Abdomen: soft, non-tender, non-distended Extremities: clear Neurological: no change Internal Medicine Assmt/Plan - Assessment Assessment: Psychosis. Major Depression disorder. History of Hypertension. History of Gouty Arthritis. History of Coronary artery disease. History of Hyperlipidemia. History of Iron deficiency anemia. History of Neuropathy. - Plan Plan: Psych management as per Psych. Monitor diet and nutritional support. Supportive care. Pain management. Monitor vitals and labs. Continue current treatment plan as ordered. Nutritional Asmnt/Malnutr-PDOC - Dietary Evaluation Malnutrition Findings (Please click <Entered> for more info): Nutritional Asmnt/Malnutrition Start: 11/25/19 10: 42 Text: Status: Complete Freq: Protocol: Document 11/25/19 10:42 JANENE (Rec: 11/25/19 10:47 [email or web address] HARP- [email or web address]) Nutritional Asmnt/Malnutrition Patient General Information Nutritional Screening Moderate Risk Diagnosis Psychosis Pertinent Medical Hx/Surgical Hx CAD, HTN, hyperlipidemia, depression, psychosis, gouty arthritis Subjective Information Patient was admitted due to increased confusion and depression. Patient tolerating current diet order with inconsistent intake. Current Diet Order/ Nutrition Support mechanical soft chopped Patient / S.O Not Indicated Pertinent Medications vitamin B12, colace, pepcid, iron, synthroid, MOM, Protonix , Vitamin D3 Pertinent Labs 11/21 Na 135 Nutritional Hx/Data Height 1.6 m Height (Calculated Centimeters) 160.0 Current Weight (lbs) 69.853 kg Weight (Calculated Kilograms) 69.9 Weight (Calculated Grams) 18450.2 [place] Body Weight 115 % [place] Body Weight 134 Body Mass Index (BMI) 27.3 Recent Weight Change No Weight Status Overweight GI Symptoms GI Symptoms None Last BM 11/24 x 2 Difficult in: None Food Allergies No Cultural/Ethnic/Mosque Belief none indicated Usual diet at home unknown Skin Integrity/Comment: Bridget 17, intact, dryness Current %PO Fair (50-74%) Estimated Nutritional Goals BEE in Kcals: Adj wt of IBW Calories/Kcals/Kg Adj BW 56.7kg 25-30 kcal/kg Kcals Calculated ~3771-6123 kcal/day Protein: Adj wt of IBW Protein g/k-1.2 gm/kg Protein Calculated ~55-70 gm/day Fluid: ml ~8267-0097 ml/day (1 ml/kcal) Nutritional Problem 1. Problem Problem Inadequate oral intake related to Etiology possible poor appetite/ confusion aeb Signs/Symptoms: po intake 50-75% of meals. Intervention/Recommendation Comments 1. Continue current diet as tolerated by patient 2. Encourage oral intake of meals and provide snacks between meals. WIll honor food preferences. Re-evaluate for protein supplements at next visit. Expected Outcomes/Goals Expected Outcomes/Goals Oral intake >75% of meals, weight stable or trend toward IBW, nutrition related labs WNL F/U MR
--- NOTE | 2019-12-02 18:23 | Progress Notes ---
DATE: 12/01/2019 PSYCHOLOGY PROGRESS NOTE SUBJECTIVE: The patient is seen and is interviewed. Case is discussed with staff. Mood seems to be less irritable this visit, but the patient still appears to be quite depressed. Staff reports the patient continues to isolate. The patient became irritated during the second part of the intervention and visit. Staff reports the patient is compliant with her medication. OBJECTIVE: Mood is depressed, but less irritable. Affect is constricted. Thought process shows to be depressogenic and confused. The patient denied any hallucinations or delusions. Behavior continues to be withdrawn and isolative. The patient has difficulty responding to staff direction. However, the staff reports the patient is compliant with her medication. ASSESSMENT: The patient's depression persists. PLAN: We provided cognitive behavioral therapy in a simple format for the patient to process her depressive thoughts and to be able to accept a different approach to coping with this phase of life. We provided remotivation for the patient to verbalize her concerns to the staff versus verbally acting out. We provided reality integration and supportive psychotherapy. We will follow up in 2-3 days to continue the present treatment if the patient remains on the unit and is able to demonstrate the capacity to benefit from psychology. JOB# [id number] AYLIN
--- NOTE | 2019-12-02 20:21 | Progress Notes ---
DATE: 12/02/2019 PSYCHIATRIC PROGRESS NOTE SUBJECTIVE: Staff was spoken to. The patient is interviewed. Mood is noted to be irritable. Affect is constricted. Coping skills are noted to be very poor. Sleep and appetite also noted to be limited. The patient has been screaming and yelling in the dining area. The patient has no insight into her illness. The patient has been having difficult time to cope with the stress. No side effects to the medications are noted. ASSESSMENT: The patient is still depressed. PLAN: To continue the patient with the supportive therapy and followup. JOB# [id number]
[2019-12-03] MEDS: Levothyroxine 0.05 Mg Tab PO SCH (06:47)
[2019-12-03] MEDS: Pantoprazole 40 mg/Packet PO SCH (06:47)
[2019-12-03] MEDS: Vitamin D3 2,000 IU SGL PO SCH (09:52)
[2019-12-03] MEDS: Ferrous Sulfate 325 MG TAB PO SCH ×3 (09:53→20:18)
[2019-12-03] MEDS: Multivitamin w/ Minerals Tab PO SCH (09:53)
[2019-12-03] MEDS: Menthol/Zinc Oxide Oint 113gm Tube TP SCH ×2 (10:00→16:20)
--- NOTE | 2019-12-03 13:39 | Internal Medicine Prog Note ---
Internal Medicine Subjective - Subjective Service Date: 12/03/19 Patient seen and examined:: with staff, chart reviewed Patient is:: awake, agitated, confused, other (very depressed mood.) Patient Complaints of:: other Per staff patient has:: no adverse event, tolerating meds Internal Medicine Objective - Physical Exam Vitals and I&O: Vital Signs Temp 98.1 F 12/03/19 06:51 Pulse 93 12/03/19 09:52 Resp 20 12/03/19 08:00 BP 121/59 12/03/19 09:52 Pulse Ox 96 12/03/19 06:51 Intake & Output 12/02/19 12/03/19 12/03/19 18:59 06:59 18:59 Intake Total 800 240 Balance 800 240 Intake: Oral 800 240 Other: # Voids 4 1 # Bowel Movements 0 1 Stool Characteristics Soft Brown Active Medications: Current Medications Acetaminophen (Tylenol) 650 mg PO Q4H PRN PRN Reason: Pain (Mild 1-3) Stop: 01/21/20 00:48 Allopurinol (Zyloprim) 200 mg PO DAILY [facility] Stop: 01/21/20 08:59 Last Admin: 12/03/19 09:51 Dose: 200 mg Amlodipine Besylate (Norvasc) 5 mg PO DAILY [facility] Stop: 01/21/20 08:59 Last Admin: 12/03/19 09:52 Dose: 5 mg Calamine/Phenol (Calmoseptine) 1 appl TP QID PRN PRN Reason: Skin Irritation Stop: 01/30/20 09:25 Last Admin: 12/02/19 06:12 Dose: 1 appl Calamine/Phenol (Calmoseptine) 1 appl TP BID [facility] Stop: 01/30/20 20:59 Last Admin: 12/03/19 10:00 Dose: 1 appl Clopidogrel Bisulfate (Plavix) 75 mg PO DAILY [facility] Stop: 01/21/20 08:59 Last Admin: 12/03/19 09:53 Dose: 75 mg Cyanocobalamin (Vitamin B12) 1,000 mcg PO DAILY [facility] Stop: 01/21/20 08:59 Last Admin: 12/03/19 09:53 Dose: 1,000 mcg Docusate Sodium (Colace) 100 mg PO BID [facility] Stop: 01/21/20 08:59 Last Admin: 12/03/19 09:53 Dose: 100 mg Donepezil HCl (Aricept) 10 mg PO [facility] Stop: 01/21/20 20:59 Last Admin: 12/02/19 21:30 Dose: 10 mg Escitalopram Oxalate (Lexapro) 10 mg PO DAILY [facility]; Protocol Stop: 01/26/20 08:59 Last Admin: 12/03/19 09:53 Dose: 10 mg Famotidine (Pepcid) 20 mg PO HS [facility] Stop: 01/21/20 20:59 Last Admin: 12/02/19 21:30 Dose: 20 mg Ferrous Sulfate (Iron) 325 mg PO TID [facility] Stop: 01/21/20 08:59 Last Admin: 12/03/19 13:15 Dose: 325 mg Gabapentin (Neurontin) 100 mg PO TID [facility] Stop: 01/21/20 08:59 Last Admin: 12/03/19 13:15 Dose: 100 mg Ibuprofen (Motrin) 400 mg PO Q6H PRN PRN Reason: moderate to severe pain (4-10) Stop: 01/21/20 00:30 Last Admin: 12/01/19 22:02 Dose: 400 mg Levothyroxine Sodium (Synthroid) 0.05 mg PO QDAC [facility] Stop: 01/21/20 07:29 Last Admin: 12/03/19 06:47 Dose: 0.05 mg Lorazepam (Ativan) 0.5 mg PO Q4H PRN; Protocol PRN Reason: Anxiety Stop: 01/20/20 22:45 Last Admin: 11/28/19 14:42 Dose: 0.5 mg Magnesium Hydroxide (Milk Of Magnesia) 30 ml PO DAILY PRN PRN Reason: Constipation Stop: 01/21/20 00:30 Memantine (Namenda) 10 mg PO BID [facility] Stop: 01/21/20 08:59 Last Admin: 12/03/19 09:53 Dose: 10 mg Nitroglycerin (Nitrostat) 0.4 mg SL Q5MIN PRN PRN Reason: CHEST PAIN X3 Stop: 01/21/20 00:30 Pantoprazole Sodium (Protonix) 40 mg PO QDAC [facility] Stop: 01/24/20 07:29 Last Admin: 12/03/19 06:47 Dose: 40 mg Vitamin D (Vitamin D3) 2,000 iu PO DAILY [facility] Stop: 01/21/20 08:59 Last Admin: 12/03/19 09:52 Dose: 2,000 iu Zolpidem Tartrate (Ambien) 5 mg PO HS PRN PRN Reason: Insomnia Stop: 01/20/20 22:45 Last Admin: 12/02/19 21:30 Dose: 5 mg Physical Exam: Patient needs close monitoring, patient is acting out, having mood swings, depressed mood. General: alert, demented HEENT: NC/AT, PERRLA Neck: Supple Lungs: CTAB Cardiovascular: RRR Abdomen: soft, non-tender, non-distended Extremities: clear Neurological: no change Internal Medicine Assmt/Plan - Assessment Assessment: Psychosis. Major Depression disorder. History of Hypertension. History of Gouty Arthritis. History of Coronary artery disease. History of Hyperlipidemia. History of Iron deficiency anemia. History of Neuropathy. - Plan Plan: Psych management as per Psych. Monitor diet and nutritional support. Supportive care. Pain management. Monitor vitals and labs. Continue current treatment plan as ordered. Nutritional Asmnt/Malnutr-PDOC - Dietary Evaluation Malnutrition Findings (Please click <Entered> for more info): Nutritional Asmnt/Malnutrition Start: 11/25/19 10: 42 Text: Status: Complete Freq: Protocol: Document 11/25/19 10:42 JANENE (Rec: 11/25/19 10:47 JANENE HARP- FNS1) Nutritional Asmnt/Malnutrition Patient General Information Nutritional Screening Moderate Risk Diagnosis Psychosis Pertinent Medical Hx/Surgical Hx CAD, HTN, hyperlipidemia, depression, psychosis, gouty arthritis Subjective Information Patient was admitted due to increased confusion and depression. Patient tolerating current diet order with inconsistent intake. Current Diet Order/ Nutrition Support mechanical soft chopped Patient / S.O Not Indicated Pertinent Medications vitamin B12, colace, pepcid, iron, synthroid, MOM, Protonix , Vitamin D3 Pertinent Labs 11/21 Na 135 Nutritional Hx/Data Height 1.6 m Height (Calculated Centimeters) 160.0 Current Weight (lbs) 69.853 kg Weight (Calculated Kilograms) 69.9 Weight (Calculated Grams) 36051.2 [place] Body Weight 115 % [place] Body Weight 134 Body Mass Index (BMI) 27.3 Recent Weight Change No Weight Status Overweight GI Symptoms GI Symptoms None Last BM 11/24 x 2 Difficult in: None Food Allergies No Cultural/Ethnic/Yazidism Belief none indicated Usual diet at home unknown Skin Integrity/Comment: Bridget 17, intact, dryness Current %PO Fair (50-74%) Estimated Nutritional Goals BEE in Kcals: Adj wt of IBW Calories/Kcals/Kg Adj BW 56.7kg 25-30 kcal/kg Kcals Calculated ~3678-1597 kcal/day Protein: Adj wt of IBW Protein g/k-1.2 gm/kg Protein Calculated ~55-70 gm/day Fluid: ml ~2062-7825 ml/day (1 ml/kcal) Nutritional Problem 1. Problem Problem Inadequate oral intake related to Etiology possible poor appetite/ confusion aeb Signs/Symptoms: po intake 50-75% of meals. Intervention/Recommendation Comments 1. Continue current diet as tolerated by patient 2. Encourage oral intake of meals and provide snacks between meals. WIll honor food preferences. Re-evaluate for protein supplements at next visit. Expected Outcomes/Goals Expected Outcomes/Goals Oral intake >75% of meals, weight stable or trend toward IBW, nutrition related labs WNL F/U MR 11/28-
--- NOTE | 2019-12-03 16:41 | Progress Notes ---
DATE: 12/03/2019 PSYCHIATRIC PROGRESS NOTE SUBJECTIVE: Staff was spoken to. The patient is interviewed. Mood is noted to be less irritable. Affect is appropriate. Insight and judgment at this time are noted to be improving. Impulse control seems to be fair. No side effects to the medications are noted. The patient has been willing to comply with the treatment. No major behavioral problems are noted today compared to yesterday. ASSESSMENT: The patient's depression is resolving. PLAN: To continue the patient with the supportive therapy and followup. JOB# [id number]
[2019-12-04] MEDS: Menthol/Zinc Oxide Oint 113gm Tube TP PRN (06:12)
[2019-12-04] MEDS: Pantoprazole 40 mg/Packet PO SCH (06:32)
[2019-12-04] MEDS: Levothyroxine 0.05 Mg Tab PO SCH (06:32)
[2019-12-04] MEDS: Multivitamin w/ Minerals Tab PO SCH (08:12)
[2019-12-04] MEDS: Vitamin D3 2,000 IU SGL PO SCH (08:12)
[2019-12-04] MEDS: Ferrous Sulfate 325 MG TAB PO SCH ×2 (08:13→14:24)
[2019-12-04] MEDS: Menthol/Zinc Oxide Oint 113gm Tube TP SCH ×2 (09:13→16:30)
--- NOTE | 2019-12-04 10:55 | Internal Medicine Prog Note ---
Internal Medicine Subjective - Subjective Service Date: 12/04/19 Patient seen and examined:: with staff Patient is:: awake, agitated, confused, other (very depressed mood.) Patient Complaints of:: other Per staff patient has:: no adverse event, no episodes of fall, tolerating meds Internal Medicine Objective - Physical Exam Vitals and I&O: Vital Signs Temp 97.6 F 12/04/19 06:30 Pulse 78 12/04/19 08:13 Resp 19 12/04/19 06:30 BP 142/67 12/04/19 08:13 Pulse Ox 96 12/04/19 06:30 Intake & Output 12/03/19 12/04/19 12/04/19 18:59 06:59 18:59 Intake Total 600 120 Balance 600 120 Intake: Oral 600 120 Other: # Voids 4 3 # Bowel Movements 2 Stool Characteristics Soft Brown Active Medications: Current Medications Acetaminophen (Tylenol) 650 mg PO Q4H PRN PRN Reason: Pain (Mild 1-3) Stop: 01/21/20 00:48 Allopurinol (Zyloprim) 200 mg PO DAILY SONAM Stop: 01/21/20 08:59 Last Admin: 12/04/19 08:12 Dose: 200 mg Amlodipine Besylate (Norvasc) 5 mg PO DAILY SONAM Stop: 01/21/20 08:59 Last Admin: 12/04/19 08:13 Dose: 5 mg Calamine/Phenol (Calmoseptine) 1 appl TP QID PRN PRN Reason: Skin Irritation Stop: 01/30/20 09:25 Last Admin: 12/04/19 06:12 Dose: 1 appl Calamine/Phenol (Calmoseptine) 1 appl TP BID SONAM Stop: 01/30/20 20:59 Last Admin: 12/04/19 09:13 Dose: 1 appl Clopidogrel Bisulfate (Plavix) 75 mg PO DAILY SONAM Stop: 01/21/20 08:59 Last Admin: 12/04/19 08:12 Dose: 75 mg Cyanocobalamin (Vitamin B12) 1,000 mcg PO DAILY SONAM Stop: 01/21/20 08:59 Last Admin: 12/04/19 08:12 Dose: 1,000 mcg Docusate Sodium (Colace) 100 mg PO BID SONAM Stop: 01/21/20 08:59 Last Admin: 12/04/19 08:12 Dose: 100 mg Donepezil HCl (Aricept) 10 mg PO HS [facility] Stop: 01/21/20 20:59 Last Admin: 12/03/19 20:18 Dose: 10 mg Escitalopram Oxalate (Lexapro) 10 mg PO DAILY [facility]; Protocol Stop: 01/26/20 08:59 Last Admin: 12/04/19 08:13 Dose: 10 mg Famotidine (Pepcid) 20 mg PO HS [facility] Stop: 01/21/20 20:59 Last Admin: 12/03/19 20:18 Dose: 20 mg Ferrous Sulfate (Iron) 325 mg PO TID [facility] Stop: 01/21/20 08:59 Last Admin: 12/04/19 08:13 Dose: 325 mg Gabapentin (Neurontin) 100 mg PO TID [facility] Stop: 01/21/20 08:59 Last Admin: 12/04/19 08:12 Dose: 100 mg Ibuprofen (Motrin) 400 mg PO Q6H PRN PRN Reason: moderate to severe pain (4-10) Stop: 01/21/20 00:30 Last Admin: 12/01/19 22:02 Dose: 400 mg Levothyroxine Sodium (Synthroid) 0.05 mg PO QDAC [facility] Stop: 01/21/20 07:29 Last Admin: 12/04/19 06:32 Dose: 0.05 mg Lorazepam (Ativan) 0.5 mg PO Q4H PRN; Protocol PRN Reason: Anxiety Stop: 01/20/20 22:45 Last Admin: 12/04/19 00:05 Dose: 0.5 mg Magnesium Hydroxide (Milk Of Magnesia) 30 ml PO DAILY PRN PRN Reason: Constipation Stop: 01/21/20 00:30 Memantine (Namenda) 10 mg PO BID [facility] Stop: 01/21/20 08:59 Last Admin: 12/04/19 08:13 Dose: 10 mg Nitroglycerin (Nitrostat) 0.4 mg SL Q5MIN PRN PRN Reason: CHEST PAIN X3 Stop: 01/21/20 00:30 Pantoprazole Sodium (Protonix) 40 mg PO QDAC [facility] Stop: 01/24/20 07:29 Last Admin: 12/04/19 06:32 Dose: 40 mg Vitamin D (Vitamin D3) 2,000 iu PO DAILY [facility] Stop: 01/21/20 08:59 Last Admin: 12/04/19 08:12 Dose: 2,000 iu Zolpidem Tartrate (Ambien) 5 mg PO HS PRN PRN Reason: Insomnia Stop: 01/20/20 22:45 Last Admin: 12/03/19 20:18 Dose: 5 mg Physical Exam: Patient needs close monitoring, patient is still in depressed mood, easily frustrated and has hostile behavior. General: alert, demented HEENT: NC/AT, PERRLA Neck: Supple Lungs: CTAB Cardiovascular: RRR Abdomen: soft, non-tender, non-distended Extremities: clear Neurological: no change Internal Medicine Assmt/Plan - Assessment Assessment: Psychosis. Major Depression disorder. History of Hypertension. History of Gouty Arthritis. History of Coronary artery disease. History of Hyperlipidemia. History of Iron deficiency anemia. History of Neuropathy. - Plan Plan: Continue present meds as directed. Psych management as per Psych. Monitor diet and nutritional support. Supportive care. Pain management. Monitor vitals and labs. Continue current treatment plan as ordered. Nutritional Asmnt/Malnutr-PDOC - Dietary Evaluation Malnutrition Findings (Please click <Entered> for more info): Nutritional Asmnt/Malnutrition Start: 11/25/19 10: 42 Text: Status: Complete Freq: Protocol: Document 11/25/19 10:42 JANENE (Rec: 11/25/19 10:47 JANENE HARP- [email or web address]) Nutritional Asmnt/Malnutrition Patient General Information Nutritional Screening Moderate Risk Diagnosis Psychosis Pertinent Medical Hx/Surgical Hx CAD, HTN, hyperlipidemia, depression, psychosis, gouty arthritis Subjective Information Patient was admitted due to increased confusion and depression. Patient tolerating current diet order with inconsistent intake. Current Diet Order/ Nutrition Support mechanical soft chopped Patient / S.O Not Indicated Pertinent Medications vitamin B12, colace, pepcid, iron, synthroid, MOM, Protonix , Vitamin D3 Pertinent Labs 11/21 Na 135 Nutritional Hx/Data Height 1.6 m Height (Calculated Centimeters) 160.0 Current Weight (lbs) 69.853 kg Weight (Calculated Kilograms) 69.9 Weight (Calculated Grams) 20161.2 [place] Body Weight 115 % [place] Body Weight 134 Body Mass Index (BMI) 27.3 Recent Weight Change No Weight Status Overweight GI Symptoms GI Symptoms None Last BM 11/24 x 2 Difficult in: None Food Allergies No Cultural/Ethnic/[employer] Belief none indicated Usual diet at home unknown Skin Integrity/Comment: Bridget 17, intact, dryness Current %PO Fair (50-74%) Estimated Nutritional Goals BEE in Kcals: Adj wt of IBW Calories/Kcals/Kg Adj BW 56.7kg 25-30 kcal/kg Kcals Calculated ~2117-9343 kcal/day Protein: Adj wt of IBW Protein g/k-1.2 gm/kg Protein Calculated ~55-70 gm/day Fluid: ml ~4686-3092 ml/day (1 ml/kcal) Nutritional Problem 1. Problem Problem Inadequate oral intake related to Etiology possible poor appetite/ confusion aeb Signs/Symptoms: po intake 50-75% of meals. Intervention/Recommendation Comments 1. Continue current diet as tolerated by patient 2. Encourage oral intake of meals and provide snacks between meals. WIll honor food preferences. Re-evaluate for protein supplements at next visit. Expected Outcomes/Goals Expected Outcomes/Goals Oral intake >75% of meals, weight stable or trend toward IBW, nutrition related labs WNL F/U MR 11/28-
--- NOTE | 2019-12-04 17:12 | Discharge Summary ---
DATE OF DISCHARGE: 12/04/2019 PSYCHIATRIC DISCHARGE SUMMARY IDENTIFYING DATA: The patient is an 84-year-old resident of a senior living facility and that is Jonh Cm, admitted on a voluntary basis in view of her depression. CHIEF COMPLAINT: "I'm feeling down, do not ask me." DIAGNOSES AT THE ADMISSION: AXIS I: Major depressive disorder, recurrent and severe. IB: Dementia and behavioral change, secondary trait. AXIS II: None. AXIS III: As per Dr. Olmstead. HISTORY OF PRESENT ILLNESS: Please refer to 11/22/2019 dictation done by me. HOSPITAL COURSE AND RESPONSE TO TREATMENT: The patient has been observed on the inpatient unit, provided with supportive psychotherapy. The patient has been started on the citalopram that was gradually increased to 10 mg and the patient has been given the memantine 10 mg twice a day and the patient has been closely monitored. The patient also has been given the donepezil for dementia and the patient has been able to tolerate the medication and the patient was noted to be doing fairly well and hence was discharged on 12/04/2019 with the recommendation that she is going to be seeking treatment on an outpatient basis. MENTAL STATUS EXAMINATION: At the time of discharge, the patient's mood is noted to be anxious. Affect is appropriate. Not suicidal or homicidal. Insight and judgment are noted to be improving. Impulse control seems to be fair. The patient denies auditory hallucinations, no delusions are noted at the time of the discharge. CONDITION: At the time of discharge noted to be stable. [facility]# [id number]
--- NOTE | 2019-12-05 15:56 | Progress Notes ---
DATE: 12/04/2019 PSYCHOLOGY PROGRESS NOTE SUBJECTIVE: The patient is seen in her room and is interviewed. Case is discussed with staff. The patient presents as calmer this visit. The staff reports the patient has been improving and not as impulsive or easily agitated. The patient has been compliant with her medication. OBJECTIVE: Mood is improving, but somewhat mildly dysphoric. Affect is mood congruent. Thought process shows to be more goal oriented, but confused. The patient denied any hallucinations or delusions. The patient has been compliant with her care and treatment. ASSESSMENT: The patient is improving and stabilizing. PLAN: We provided positive reinforcement and remotivation for the patient to stay compliant with all aspects of her care and treatment. We provided coping strategies for phase of life issues as well. We encouraged the patient to follow up with a psychologist at her facility for continued care. No followup is indicated as the patient is discharging today. [facility]# [id number] AYLIN
== END 2019-12-04 17:00 | DRG 885 ==
LOC: GERO 20:01
PROVIDERS: ADMIT Psychiatry & Neurology Psychiatry; ATTEND Psychiatry & Neurology Psychiatry
DX: F33.2 Major depressive disorder, recurrent severe without psychotic features (principal); F02.81 Dementia in other diseases classified elsewhere, unspecified severity, with behavioral disturbance; G30.9 Alzheimer's disease, unspecified; F29 Unspecified psychosis not due to a substance or known physiological condition; F63.9 Impulse disorder, unspecified; I25.10 Atherosclerotic heart disease of native coronary artery without angina pectoris; E78.5 Hyperlipidemia, unspecified; I10 Essential (primary) hypertension; M19.90 Unspecified osteoarthritis, unspecified site; M10.9 Gout, unspecified; D50.9 Iron deficiency anemia, unspecified; G62.9 Polyneuropathy, unspecified; Z79.899 Other long term (current) drug therapy
CPT/HCPCS: 83036-90; 90899; G0410; Z7610